=== PATIENT | male | born 1960 | race Caucasian/White ===

== ENCOUNTER 2016-07-04 15:17 | Emergency (ER) | payer OTHER ==
[2016-07-04 15:23] VITALS: BMI 28.4
--- NOTE | 2016-07-04 15:24 | PDOC ---
Rapid Medical Evaluation Chief Complaint: Asthma Time Seen by Provider: 07/04/16 15:21 Medical Evaluation: Allergies Allergy/AdvReac Type Severity Reaction Status Date / Time ciprofloxacin [From Cipro] Allergy Mild Rash Verified 07/04/16 15:19 ciprofloxacin HCl Allergy Mild Rash Verified 07/04/16 15:19 [From Cipro] 07/04/16 15:22 I have performed a brief in-person evaluation of this patient. The patient presents with a chief complaint of: wheeze, cough, sob x 3 days. Hx asthma. no inprovement w/inhaler. No hx of intubations Pertinent physical exam findings: expiratory wheeze, decreased bs at bases, + accessory muscle usage I have ordered the following: duoneb given in triage, duoneb x 3 addit, soulemedrol, iv insert, cxr, cbc, comp The patient will proceed to the ED for further evaluation.
[2016-07-04] MEDS ORDERED: methylPREDNISolone NA SUCC 125 MG/2 ML VIAL IVPB ONE (15:25)
[2016-07-04] MEDS: ALBUTEROL SO4 2.5/IPRATROPIUM 0.5 INH SOL 3 ML VIAL.NEB. NEB SCH ×3 (15:25→16:16)
[2016-07-04] MEDS ORDERED: methylPREDNISolone NA SUCC 125 MG/2 ML VIAL ONE (15:28)
--- NOTE | 2016-07-04 15:28 | PDOC ---
History of Present Illness - History of Present Illness Initial Comments: 07/04/16 15:49 Patient is a 55 year old male with significant medical hx of asthma (treats with albuterol and singulair) who is presenting to the ED with one day of worsening dyspnea. Patient reports using his albuterol and singulair this morning, however, he still felt increasingly dyspneic. The patient also complains of several days of cough but denies any sputum production, fevers, chills, rigors, and chest pain. The patient has not seen his PMD in two years, however, he states that he receives prescription renewals over the phone. The patient hasnt had any steriod treatment for his asthma in three years time. PMD: Dominique Metcalf MD <Mary Jane Justice - Last Filed: 07/04/16 16:17> <Christopher Herbert - Last Filed: 07/04/16 16:56> - General Chief Complaint: Asthma Stated Complaint: ASTHMA ATTACK Time Seen by Provider: 07/04/16 15:21 Past History <Mary Jane Justice - Last Filed: 07/04/16 16:17> - Past Medical History Asthma: Yes Suicide Attempt (Hx): No - Immunization History Immunization Up to Date: Yes - Psycho/Social/Smoking Cessation Hx Anxiety: No Suicidal Ideation: No Smoking Status: No Smoking History: Never smoked Have you smoked in the past 12 months: No Number of Cigarettes Smoked Daily: 0 Information on smoking cessation initiated: No Hx Alcohol Use: No Drug/Substance Use Hx: No Substance Use Type: None Hx Substance Use Treatment: No <Christopher Herbert - Last Filed: 07/04/16 16:56> - Past Medical History Allergies/Adverse Reactions: Allergies Allergy/AdvReac Type Severity Reaction Status Date / Time ciprofloxacin [From Cipro] Allergy Mild Rash Verified 07/04/16 15:19 ciprofloxacin HCl Allergy Mild Rash Verified 07/04/16 15:19 [From Cipro] Home Medications: Ambulatory Orders Montelukast Na [Singulair -] 5 mg PO HS #0 tab.chew 05/04/13 Albuterol 2.5/Ipratropium 0.5 [Duoneb -] 1 neb IH QID PRN 06/08/14 Budesonide [Pulmicort Flexhaler] 90 mcg IH DAILY 06/29/14 Mometasone/Formoterol [Dulera 100 Mcg/5 Mcg Inhaler] 2 inh IH PRN PRN 06/29/14 Review of Systems - Review of Systems Comments:: 07/04/16 15:52 GENERAL/CONSTITUTIONAL: No fever or chills. No weakness. HEAD, EYES, EARS, NOSE AND THROAT: No change in vision. No ear pain or discharge. No sore throat. CARDIOVASCULAR: No chest pain. RESPIRATORY: Cough, dyspnea. No wheezing or hemoptysis. GASTROINTESTINAL: No nausea, vomiting, diarrhea or constipation. GENITOURINARY: No dysuria, frequency, or change in urination. MUSCULOSKELETAL: No joint or muscle swelling or pain. No neck or back pain. SKIN: No rash NEUROLOGIC: No headache, vertigo, loss of consciousness, or change in strength/ sensation. <Mary Jane Justice - Last Filed: 07/04/16 16:17> *Physical Exam - Vital Signs Last Vital Signs Temp Pulse Resp BP Pulse Ox 118 H 34 H 140/100 97 07/04/16 15:20 07/04/16 15:20 07/04/16 15:20 07/04/16 15:20 - Physical Exam Comments: 07/04/16 15:53 GENERAL: Awake, alert, and fully oriented, in no acute distress HEAD: No signs of trauma EYES: PERRLA, EOMI, sclera anicteric, conjunctiva clear ENT: Auricles normal inspection, hearing grossly normal, nares patent, oropharynx clear without exudates. Moist mucosa NECK: Normal ROM, supple, no lymphadenopathy, JVD, or masses LUNGS: Expiratory wheezes in all lung fraser. No conversational dyspnea. No crackles HEART: Regular rate and rhythm, normal S1 and S2, no murmurs, rubs or gallops ABDOMEN: Soft, nontender, normoactive bowel sounds. No guarding, no rebound. No masses EXTREMITIES: Normal range of motion, no edema. No clubbing or cyanosis. No cords, erythema, or tenderness NEUROLOGICAL: Cranial nerves II through XII grossly intact. Normal speech, normal gait SKIN: Warm, Dry, normal turgor, no rashes or lesions noted. ENDOCRINE: No increased thirst. No abnormal weight change. HEMATOLOGIC/LYMPHATIC: No anemia, easy bleeding, or history of blood clots. ALLERGIC/IMMUNOLOGIC: No hives or skin allergy. <Mary Jane Justice - Last Filed: 07/04/16 16:17> - Vital Signs Last Vital Signs Temp Pulse Resp BP Pulse Ox 118 H 34 H 140/100 97 07/04/16 15:20 07/04/16 15:20 07/04/16 15:20 07/04/16 15:20 <Christopher Herbert - Last Filed: 07/04/16 16:56> ED Treatment Course - LABORATORY CBC & Chemistry Diagram: 07/04/16 15:50 07/04/16 15:40 - RADIOLOGY Radiograph Interpretation: 07/04/16 16:17 Chest X-Ray Impression: Minimal atelectatic changes in the right lung base, medially without evidence of focal infiltrates. Reported By: Chapo Muñiz MD - Medications Given in the ED: ED Medications Discontinued Medications Generic Name Dose Route Start Last Admin Trade Name Freq PRN Reason Stop Dose Admin Magnesium Sulfate 2 gm 07/04/16 15:48 07/04/16 15:49 Magnesium Sulfate IVPB 07/04/16 15:49 2 gm NOW ONE Administration Methylprednisolone Sodium Succinate 125 mg 07/04/16 15:25 07/04/16 15:31 Solu-Medrol - IVPB 07/04/16 15:26 125 mg ONCE ONE Administration <Mary Jane Justice - Last Filed: 07/04/16 16:17> - LABORATORY CBC & Chemistry Diagram: 07/04/16 15:50 07/04/16 15:40 <Christopher Herbert - Last Filed: 07/04/16 16:56> Medical Decision Making - Medical Decision Making 07/04/16 16:53 Patient is feeling much better. Repeat exam reveals no wheezing. Diagnostics appreciated. Pt will be discharged with a medrol dose pack and a Z-Pack. He is invited back to us if any problems and ask to follow with his PCP. Especially since he has not seen them in a couple of years. <Christopher Herbert - Last Filed: 07/04/16 16:56> *DC/Admit/Observation/Transfer - Attestations Scribe Attestion: 07/04/16 15:54 Documentation prepared by Mary Jane Justice, acting as medical payment poster for Christopher Herbert MD. <Mary Jane Justice - Last Filed: 07/04/16 16:17> - Discharge Dispostion Admit: No - Attestations Physician Attestion: 07/04/16 15:28 I, Dr. Christopher Herbert, attest that this document has been prepared under my direction and personally reviewed by me in its entirety. I further attest, that it accurately reflects all work, treatment, procedures and medical decision -making performed by me. <Christopher Herbert - Last Filed: 07/04/16 16:56> Diagnosis at time of Disposition: Asthma, Bronchitis Asthma exacerbation Qualifiers: Asthma severity: unspecified severity Qualified Code(s): J45.901 - Unspecified asthma with (acute) exacerbation - Discharge Dispostion Disposition: HOME Condition at time of disposition: Good - Patient Instructions Printed Discharge Instructions: Asthma -- Adult, DI for Chronic Bronchitis Additional Instructions: Mr Batista- I hope you are feeling better. I think it is important that you follow up with your Primary Doctor. Return to us if worse or any new symptoms occur. Both the Medrol Dose Pack and the Zpack are for the next five days. You can start them both tomorrow morning. Best- Dr. Christopher Herbert
[2016-07-04] MEDS ORDERED: MAGNESIUM SULF 50% (8.12 MEQ/2 ML-1 GM VIAL) ONE (15:30)
[2016-07-04] MEDS ORDERED: ALBUTEROL SO4 2.5/IPRATROPIUM 0.5 INH SOL 3 ML VIAL.NEB. NEB ONE (15:42)
[2016-07-04] MEDS ORDERED: MAGNESIUM SULF 50% (8.12 MEQ/2 ML-1 GM VIAL) IVPB ONE (15:48)
[2016-07-04 16:24] LABS: ALBUMIN 4.1 g/dl (3.4-5.0); ANION GAP 9 (8-16); BILIRUBIN,TOTAL 0.6 mg/dL (0.2-1.0); CALCIUM 9.4 mg/dL (8.5-10.1); CO2 28 mmol/L (21-32); CREATININE 1.1 mg/dL (0.7-1.3); GLUCOSE,RANDOM 117 mg/dL (74-106); SGOT/AST 32 U/L (15-37); SGPT/ALT 42 U/L (12-78); TOT PROT 7.4 g/dl (6.4-8.2)
[2016-07-04 16:25] LABS: ALK PHOS 74 U/L (45-117)
[2016-07-04 16:40] LABS: BASOPHIL 0.7 % (0-2.0); EOSINOPHIL 5.7 % (0-4.5); MCH 29.7 pg (25.7-33.7); MCHC 33.9 g/dl (32.0-35.9); MEAN CELL VOLUME 87.8 fl (80-96); MEAN PLT VOLUME 8.6 fl (7.5-11.1); NEUTROPHILS 61.4 % (42.8-82.8); PLATELET COUNT 320 K/MM3 (134-434); RDW 13.1 % (11.9-15.9); WHITE BLOOD COUNT 9.2 K/mm3 (4.0-10.0)
[2016-07-04 17:20] VITALS: BP 129/81; PULSE 86
== END 2016-07-04 17:20 | disposition home or self-care (01) ==
LOC: JER 15:17
PROC: 3E0F7GC Introduction of Other Therapeutic Substance into Respiratory Tract, Via Natural or Artificial Opening (ICD-10-PCS; principal; 2016-07-04)
PROC: 3E0333Z Introduction of Anti-inflammatory into Peripheral Vein, Percutaneous Approach (ICD-10-PCS; 2016-07-04)
PROC: 3E033GC Introduction of Other Therapeutic Substance into Peripheral Vein, Percutaneous Approach (ICD-10-PCS; 2016-07-04)
DX: J45.901 Unspecified asthma with (acute) exacerbation (principal)
CPT/HCPCS: 36415; 71010-TC; 80053; 85025; 99283-25

== ENCOUNTER 2017-01-04 22:09 | Emergency (ER) | payer OTHER ==
[2017-01-04 22:16] VITALS: BP 143/86; PULSE 80; TEMP 98.2; BMI 28.8
--- NOTE | 2017-01-04 22:42 | PDOC ---
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 Patient reports that he was on the fifth floor and pushing his car onto the elevator when it became stuck causing him to fall hitting his right elbow on the floor this evening. Patient reports tenderness of the right elbow which is currently an 8 aching. Patient talk acetaminophen prior to coming to the emergency room. He denies any other injury.He denies any head injury. Able to move his right elbow right shoulder and right wrist without any difficulty. Patient denies any numbness of the right arm. Occurred: reports: just prior to arrival Severity: reports: moderate (left elbow ) Pain Location: reports: upper extremity (left elbow) Method of Injury: Yes: fall (unto the floor here at work ) Modifying Factors: improves with: None Loss of Consciousness: no loss of consciousness Associated Symptoms (Fall): denies symptoms Past History - Past Medical History Allergies/Adverse Reactions: Allergies Allergy/AdvReac Type Severity Reaction Status Date / Time ciprofloxacin [From Cipro] Allergy Mild Rash Verified 01/04/17 22:13 ciprofloxacin HCl Allergy Mild Rash Verified 01/04/17 22:13 [From Cipro] Home Medications: Ambulatory Orders Montelukast Na [Singulair -] 5 mg PO HS #0 tab.chew 05/04/13 Albuterol 2.5/Ipratropium 0.5 [Duoneb -] 1 neb IH QID PRN 06/08/14 Budesonide [Pulmicort Flexhaler] 90 mcg IH DAILY 06/29/14 Mometasone/Formoterol [Dulera 100 Mcg/5 Mcg Inhaler] 2 inh IH PRN PRN 06/29/14 Albuterol Sulfate Inhaler - [Ventolin HFA Inhaler -] 1 - 2 inh PO Q4H #2 inhaler 07/04/16 Asthma: Yes Suicide Attempt (Hx): No - Immunization History Immunization Up to Date: Yes - Psycho/Social/Smoking Cessation Hx Anxiety: No Suicidal Ideation: No Smoking Status: No Smoking History: Never smoked Have you smoked in the past 12 months: No Number of Cigarettes Smoked Daily: 0 Information on smoking cessation initiated: No Hx Alcohol Use: No Drug/Substance Use Hx: No Substance Use Type: None Hx Substance Use Treatment: No Review of Systems - Review of Systems Able to Perform ROS?: Yes Constitutional: No: Symptoms Reported HEENTM: No: Symptoms Reported Respiratory: No: Symptoms reported Cardiac (ROS): No: Symptoms Reported ABD/GI: No: Symptoms Reported : No: Symptoms Reported Musculoskeletal: Yes: Joint Pain (right elbow ). No: Joint Swelling Integumentary: No: Symptoms Reported Neurological: No: Symptoms reported *Physical Exam - Vital Signs Last Vital Signs Temp Pulse Resp BP Pulse Ox 98.2 F 80 18 143/86 100 01/04/17 22:14 01/04/17 22:14 01/04/17 22:14 01/04/17 22:14 01/04/17 22:14 - Physical Exam General Appearance: Yes: Appropriately Dressed Comments:: 01/04/17 22:35 radial pulse 4 + right Extremity: positive: Normal Capillary Refill, Normal Range of Motion (right elbow, shoulder, wrist), Tender (right elbow point tenderness ), Erythema ( minimal erythema rt. elbow ). 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 Patient reports that he was on the fifth floor and pushing his car onto the elevator when it became stuck causing him to fall hitting his right elbow on the floor this evening. Patient reports tenderness of the right elbow which is currently an 8 aching. Patient talk acetaminophen prior to coming to the emergency room. He denies any other injury.He denies any head injury. Able to move his right elbow right shoulder and right wrist without any difficulty. Patient denies any numbness of the right arm. Fall unto rt. elbow r/o Fracture PLAN: xray right elbow avulsion fracture of the medial epicondyle, no fracture noted per Dr. Joel posterior orthoglass splint applied and sling follow up with orthopedist tomorrow for further evaluation 01/04/17 23:10 01/06/17 00:26 *DC/Admit/Observation/Transfer Diagnosis at time of Disposition: Fracture of medial epicondyle of right humerus Qualifiers: Encounter type: initial encounter Fracture type: closed Fracture morphology: unspecified fracture morphology Fracture alignment: displaced Qualified Code(s) : S42.441A - Displaced fracture (avulsion) of medial epicondyle of right humerus , initial encounter for closed fracture - Discharge Dispostion Disposition: HOME Condition at time of disposition: Good - Referrals Referrals: Dominique Edmonds MD [Primary Care Provider] - Justin Shaikh MD [Staff Physician] - - Patient Instructions Additional Instructions: Plan ice to right elbow every hour for 10 minutes while awake tonight and tomorrow Keep Ortho-Glass splint on and use sling may take off at night and elevate on pillow Take ibuprofen or acetaminophen as needed as directed by lathe spotter for pain Follow-up with orthopedist tomorrow morning Return to emergency room if any numbness of arms or worsening pain Patient voiced understanding of discharge instructions and all questions were answered - Post Discharge Activity Work/School Note: Back to Work
== END 2017-01-04 23:14 | disposition home or self-care (01) ==
LOC: JERFT 22:09
PROC: 2W38X1Z Immobilization of Right Upper Extremity using Splint (ICD-10-PCS; principal; 2017-01-04)
DX: S42.441A Displaced fracture (avulsion) of medial epicondyle of right humerus, initial encounter for closed fracture (principal); W18.39XA Other fall on same level, initial encounter; Y93.89 Activity, other specified; Y92.238 Other place in hospital as the place of occurrence of the external cause; Y99.0 Civilian activity done for income or pay
CPT/HCPCS: 73070-TC-RT; 99281-25

== ENCOUNTER 2017-04-30 15:44 | Emergency (ER) | payer OTHER ==
[2017-04-30] MEDS ORDERED: ALBUTEROL SO4 2.5/IPRATROPIUM 0.5 INH SOL 3 ML VIAL.NEB. NEB ONE ×4 (15:48→16:08)
[2017-04-30] MEDS ORDERED: methylPREDNISolone NA SUCC 125 MG/2 ML VIAL ONE (15:49)
[2017-04-30] MEDS ORDERED: methylPREDNISolone NA SUCC 125 MG/2 ML VIAL IVPUSH ONE (15:49)
--- NOTE | 2017-04-30 15:49 | PDOC ---
Attending Attestation - Resident Resident Name: JustinorokcHarry - ED Attending Attestation I have performed the following: I have examined & evaluated the patient, The case was reviewed & discussed with the resident, I agree w/resident's findings & plan, Exceptions are as noted - HPI HPI: 04/30/17 15:55 55 year old male PMH asthma (no intubations, last steroids 9 months ago, on albuterol and singulair) presents with 4 days of progressive SOB. Patient reports using his albuterol and singulair with minimal relief. Reports that this feels like his asthma PMD: Dominique Metcalf MD - Physicial Exam PE: 04/30/17 15:56 GENERAL: Awake, alert, and fully oriented, in mild resp distress HEAD: No signs of trauma EYES: PERRLA, EOMI, sclera anicteric, conjunctiva clear ENT: Auricles normal inspection, hearing grossly normal, nares patent, oropharynx clear without exudates. Moist mucosa NECK: Normal ROM, supple, no lymphadenopathy, JVD, or masses LUNGS: moderate air movement, diffuse wheezing, tachypneic to 30, sat 99% RA HEART: Regular rate and rhythm, normal S1 and S2, no murmurs, rubs or gallops ABDOMEN: Soft, nontender, normoactive bowel sounds. No guarding, no rebound. No masses EXTREMITIES: Normal range of motion, no edema. No clubbing or cyanosis. No cords, erythema, or tenderness NEUROLOGICAL: Normal speech, cranial nerves intact, negative pronator drift SKIN: Warm, Dry, normal turgor, no rashes or lesions noted. - Medical Decision Making 04/30/17 16:05 56yo M hx asthma p/w sob and asthma sxs for 4 days. Vitals remarkable for tachypnea to 30, but sat is high 90s to 100% on RA. Exam with fair air movement but diffuse wheezing and mild distress. Will treat with steroids and nebs and reassess shortly. Will also obtain labs and CXR. 04/30/17 16:31 On reevaluation, the patient reports that he feels much better. Lungs are clear with only minimal wheezing in the left lower lobe. Respiratory rate is 20, O2 sat 100% RA. 04/30/17 18:05 VBG with elevated CO2 to 66 but normal pH, pt likely chronic retainer. AST and BUN very mildly elevated, advised pt to follow up with Dr. Kwok to have them repeated. Initial portable CXR with possible infiltrate vs atelectasis. Rpt pa/lat with persistent possible infiltrate, will tx for CAP nickolas barrios (last admission 3+ months ago at [place]). Pt is afebrile, with minimal non-prod cough, however will treat given new radiographic findings and SOB. Rpt exam with clear lungs, 100% O2 sat, RR 16. Pt feels much better, requests DC, knows to return here or go to [facility] (closer to his home) if symptoms return. I discussed the physical exam findings, ancillary test results and final diagnoses with the patient. I answered all of the patient's questions. The patient was satisfied with the care received and felt comfortable with the discharge plan and treatment plan. The patient will call their primary care physician within 24 hours to arrange follow-up and will return to the Emergency Department with any new, persistent or worsening symptoms. Discharge Disposition - Diagnosis Asthma exacerbation - Discharge Dispostion Disposition: HOME Condition at time of disposition: Stable Last Admission D/C Date: 05/04/13 Admit: No - Prescriptions Prescriptions: Azithromycin 250 mg PO DAILY #4 tablet Prednisone [Prednisone 50 MG TABLETS] 50 mg PO DAILY #4 tablet - Referrals Referrals: Abraham Kwok MD [Primary Care Provider] - - Patient Instructions Printed Discharge Instructions: Pneumonia-Adult, DI for Asthma -- Adult Additional Instructions: Follow-up with Dr. Kwok tomorrow as discussed. Your liver/kidney function tests were very slightly elevated, have Dr. Kwok repeat them when you follow up. Starting tomorrow, take the prednisone and azithromycin as prescribed. Use your albuterol inhaler as needed for shortness of breath. Return to the emergency department if you have any new, worsening or concerning symptoms. Print Language: HUNGARIAN - Post Discharge Activity Work/School Note: Back to Work
[2017-04-30 15:52] VITALS: BMI 30.1
[2017-04-30 16:05] LABS: BASO % 0.9 % (0-2.0); EOS % 6.1 % (0-4.5); HEMATOCRIT 43.6 % (35.4-49); HEMOGLOBIN 14.7 GM/dL (11.7-16.9); LYMPH % 21.8 % (8-40); MCH 29.3 pg (25.7-33.7); MCHC 33.8 g/dl (32.0-35.9); MEAN CELL VOLUME 86.7 fl (80-96); MEAN PLT VOLUME 8.2 fl (7.5-11.1); MONO % 7.6 % (3.8-10.2); NEUT % 63.6 % (42.8-82.8); PLATELET COUNT 319 K/MM3 (134-434); RBC 5.03 M/mm3 (4.00-5.60); RDW 14.2 % (11.9-15.9); WHITE BLOOD COUNT 9.2 K/mm3 (4.0-10.0)
--- NOTE | 2017-04-30 16:08 | PDOC ---
History of Present Illness - General Chief Complaint: Shortness of Breath Stated Complaint: SOB Time Seen by Provider: 04/30/17 15:48 History Source: Patient Exam Limitations: Clinical Condition - History of Present Illness Initial Comments: 04/30/17 16:05 The patient is a 56M with a PMH of asthma (controlled with albuterol and singulair) who presents to the ED with difficulty breathing 2/2 to asthma exacerbation. The patient states that he was "not feeling well" for 4 days, complaining of a cough. He states that his asthma acutely worsened overnight. He tried 4 neb treatments at home, came to work and tried 4 albuterol inhaler treatments, but his asthma persisted. He denies any sore throat, fever, chills, nausea, vomiting, CP, and worsening SOB. His last asthma attack was 3-4 months ago. He has never been intubated and never been in the ICU. Past History - Past Medical History Allergies/Adverse Reactions: Allergies Allergy/AdvReac Type Severity Reaction Status Date / Time ciprofloxacin [From Cipro] Allergy Mild Rash Verified 04/30/17 15:52 ciprofloxacin HCl Allergy Mild Rash Verified 04/30/17 15:52 [From Cipro] Home Medications: Ambulatory Orders Albuterol 2.5/Ipratropium 0.5 [Duoneb -] 1 neb IH QID PRN 06/08/14 Albuterol Sulfate Inhaler - [Ventolin HFA Inhaler -] 1 - 2 inh PO Q4H #2 inhaler 07/04/16 Montelukast Na [Singulair -] 10 mg PO HS 04/30/17 Salmeterol/Fluticasone [Advair 100Mcg/50Mcg -] 1 inh PO BID 04/30/17 Asthma: Yes COPD: No - Immunization History Immunization Up to Date: Yes - Suicide/Smoking/Psychosocial Hx Smoking Status: No Smoking History: Never smoked Have you smoked in the past 12 months: No Number of Cigarettes Smoked Daily: 0 Hx Alcohol Use: No Drug/Substance Use Hx: No Substance Use Type: None Hx Substance Use Treatment: No Review of Systems - Review of Systems Able to Perform ROS?: Yes Comments:: 04/30/17 16:27 GENERAL/CONSTITUTIONAL: No fever or chills. No weakness. HEAD, EYES, EARS, NOSE AND THROAT: No change in vision. No ear pain or discharge. No sore throat. GASTROINTESTINAL: No nausea, vomiting, diarrhea, constipation, or abdominal pain. GENITOURINARY: No dysuria, frequency, hematuria, or change in urination. CARDIOVASCULAR: No chest pain, palpitations, or lightheadedness. RESPIRATORY: Positive for cough, wheezing, and shortness of breath. No hemoptysis. MUSCULOSKELETAL: No joint or muscle swelling or pain. No neck or back pain. SKIN: No rash or lesions. NEUROLOGIC: No headache, numbness, tingling, weakness, loss of consciousness, or change in strength/sensation. ENDOCRINE: No increased thirst. No abnormal weight change. HEMATOLOGIC/LYMPHATIC: No anemia, easy bleeding, or history of blood clots. ALLERGIC/IMMUNOLOGIC: No hives or skin allergy. Is the patient limited Citizen Of [place] proficient: No *Physical Exam - Vital Signs Last Vital Signs Temp Pulse Resp BP Pulse Ox 100 H 32 H 160/120 100 04/30/17 15:50 04/30/17 15:50 04/30/17 15:50 04/30/17 15:50 - Physical Exam Comments: 04/30/17 16:29 GENERAL: Well developed, well nourished. Awake and alert. In moderate distress. Tripoding, speaking in 1 word sentence. HEENT: Normocephalic, atraumatic. Hearing grossly normal. Moist mucous membranes. NECK: Supple. Full ROM. No JVD. No thyromegaly. No lymphadenopathy. CARDIOVASCULAR: Regular rate and rhythm. No murmurs, rubs, or gallops. PULMONARY: Moderate respiratory distress. Expiratory wheezes in b/l lung fraser. Not moving air well. ABDOMINAL: Soft. Non-tender. Non-distended. No rebound or guarding. GENITOURINARY: No CVA tenderness bilaterally. MUSCULOSKELETAL: Normal range of motion at all joints. No bony deformities or tenderness. EXTREMITIES: No cyanosis. No clubbing. No edema. No calf tenderness. SKIN: Warm and dry. Normal capillary refill. No rashes. No jaundice. NEUROLOGICAL: Alert, awake, appropriate. Cranial nerves 2-12 intact. Normal speech. Gait is normal without ataxia. PSYCHIATRIC: Cooperative. Good eye contact. Appropriate mood and affect. 04/30/17 16:30 ED Treatment Course - LABORATORY CBC & Chemistry Diagram: 04/30/17 16:00 04/30/17 16:00 - RADIOLOGY Radiology Studies Ordered: Category Date Time Status CHEST X-RAY PORTABLE* [RAD] Stat Radiology 04/30/17 15:48 Ordered Medical Decision Making - Medical Decision Making 04/30/17 16:39 The patient is a 56M with a PMH of asthma who presented in respiratory distress. I ordered continuous duonebs and 125 of solumedrol. On reassessment the patient is speaking in full sentences and has decreased wheezing. Pending labs and imaging. 04/30/17 16:58 Care will be continued by Dr. Villegas.
[2017-04-30 16:15] LABS: VENOUS PC02 38.1 mmHg (38-52); VENOUS PH 7.39 (7.32-7.42); VENOUS PO2 66.3 mmHg (28-48)
[2017-04-30 16:37] LABS: ANION GAP 10 (8-16); BILIRUBIN,TOTAL 0.8 mg/dL (0.2-1.0); BLOOD UREA NITROGEN 24 mg/dL (7-18); CALCIUM 8.9 mg/dL (8.5-10.1); CHLORIDE 104 mmol/L (98-107); CO2 23 mmol/L (21-32); CREATININE 1.1 mg/dL (0.7-1.3); GLUCOSE,RANDOM 128 mg/dL (74-106); SGPT/ALT 49 U/L (12-78); SODIUM 137 mmol/L (136-145); TOT PROT 7.5 g/dl (6.4-8.2)
[2017-04-30 16:40] LABS: ALK PHOS 65 U/L (45-117)
[2017-04-30 16:45] LABS: POTASSIUM 4.3 mmol/L (3.5-5.1); SGOT/AST 46 U/L (15-37)
[2017-04-30] MEDS ORDERED: AZITHROMYCIN 250 MG TABLET PO ONE (17:59)
[2017-04-30] MEDS ORDERED: AZITHROMYCIN 500 MG TABLET ONE (18:27)
[2017-04-30 18:41] VITALS: BP 128/83; PULSE 94; TEMP 98
--- NOTE | 2017-05-01 10:28 | EKG ---
Test Reason : Blood Pressure : / mmHG Vent. Rate : 100 BPM Atrial Rate : 100 BPM P-R Int : 174 ms QRS Dur : 092 ms QT Int : 346 ms P-R-T Axes : 032 124 010 degrees QTc Int : 446 ms NORMAL SINUS RHYTHM LEFT POSTERIOR FASCICULAR BLOCK INFERIOR INFARCT , AGE UNDETERMINED ABNORMAL ECG Confirmed by CHUYITA RUELAS MD ([id number]) on 05/01/2017 10:28:02 AM Referred By: Confirmed By:CHUYITA RUELAS MD
== END 2017-04-30 18:41 | disposition home or self-care (01) ==
LOC: JER 15:44
PROC: 3E0F7GC Introduction of Other Therapeutic Substance into Respiratory Tract, Via Natural or Artificial Opening (ICD-10-PCS; principal; 2017-04-30)
PROC: 3E0F7GC Introduction of Other Therapeutic Substance into Respiratory Tract, Via Natural or Artificial Opening (ICD-10-PCS; 2017-04-30)
PROC: 3E0333Z Introduction of Anti-inflammatory into Peripheral Vein, Percutaneous Approach (ICD-10-PCS; 2017-04-30)
DX: J45.901 Unspecified asthma with (acute) exacerbation (principal)
CPT/HCPCS: 36415; 71045-TC; 71046-TC; 80053; 82550; 82553; 82803; 84484; 85025; 93005; 93010; 99283-25

== ENCOUNTER 2017-07-07 15:23 | Emergency (ER) | payer OTHER ==
[2017-07-07] MEDS ORDERED: MAGNESIUM SULF 50% (8.12 MEQ/2 ML-1 GM VIAL) IVPB ONE (15:25)
[2017-07-07] MEDS ORDERED: ALBUTEROL SO4 2.5/IPRATROPIUM 0.5 INH SOL 3 ML VIAL.NEB. NEB ONE ×2 (15:25→15:30)
--- NOTE | 2017-07-07 15:25 | PDOC ---
Rapid Medical Evaluation Time Seen by Provider: 07/07/17 15:24 Medical Evaluation: Allergies Allergy/AdvReac Type Severity Reaction Status Date / Time ciprofloxacin [From Cipro] Allergy Mild Rash Verified 04/30/17 15:52 ciprofloxacin HCl Allergy Mild Rash Verified 04/30/17 15:52 [From Cipro] 07/07/17 15:24 56 year old male with a history of asthma on daily Advair/Singulair. States he was intubated here earlier this year although this is not immediately apparent from notes. Presents in respiratory distress, diffuse insp + exp wheezing with very poor air entry bilaterally, speaking in half sentences. Taken to Main ED room 10. -DuoNeb -Albuterol neb q15 min -Solumedrol 125mg IVP -Mg 2g IVPB -Bipap
[2017-07-07] MEDS ORDERED: methylPREDNISolone NA SUCC 125 MG/2 ML VIAL IVPUSH ONE (15:28)
[2017-07-07] MEDS ORDERED: MAGNESIUM SULF 50% (8.12 MEQ/2 ML-1 GM VIAL) ONE (15:29)
[2017-07-07] MEDS ORDERED: EPINEPHrine/PF 1 MG/1 ML (1:1,000) AMPULE ONE (15:29)
[2017-07-07] MEDS ORDERED: methylPREDNISolone NA SUCC 125 MG/2 ML VIAL ONE (15:30)
[2017-07-07] MEDS: ALBUTEROL SO4 0.083% IH SOL 2.5 MG/3 ML VIAL.NEB. NEB SCH ×4 (15:35→16:43)
[2017-07-07 15:38] VITALS: BMI 31.3
--- NOTE | 2017-07-07 16:03 | PDOC ---
Attending Attestation - HPI HPI: 07/07/17 16:18 The patient is a 56-year-old male with a significant past medical history of asthma (compliant with daily asthma medications), who presents to the emergency department for respiratory distress today. He reports dyspnea and wheezing. Patient states he was previously intubated earlier this year. The patient denies chest pain, headache and dizziness. The patient denies fever , chills, nausea, vomit, diarrhea and constipation. The patient denies dysuria, frequency, urgency and hematuria. - Physicial Exam PE: 07/07/17 16:18 Vitals: Triage Vital signs reviewed General Appearance: well nourished well developed, Head: Atraumatic, normocephalic Throat: Posterior oropharynx without erythema, mucous membranes moist, Cardiac: Regular rate and rhythm, no murmurs, no rubs, no gallops, Lungs: (+) Mild bilateral wheezing Abdomen: Soft, nondistended, normal bowel sounds, nontender to palpation Extremities: Full range of motion to all extremities, no cyanosis, clubbing, or edema Skin: Warm and dry, no rashes or lesions, no petechiae Psych: normal mood, normal affect <Heather Short - Last Filed: 07/07/17 16:18> - Resident Resident Name: Mariah Carlos - ED Attending Attestation I have performed the following: I have examined & evaluated the patient, The case was reviewed & discussed with the resident, I agree w/resident's findings & plan, Exceptions are as noted - Medical Decision Making 07/07/17 18:36 56 years old with moderate asthma exacerbation given DuoNeb's site Medrol magnesium We'll observe and reassess Reevaluation 4 PM patient feels much better we'll observe for an additional 2 hours and reevaluate Reevaluation 6 PM patient states his asthma exacerbations completely resolved. No wheezing at this time normal vital signs. We'll discharge home with 5 day course prednisone he'll follow-up with his primary care provider 1-2 days Findings, need for follow-up, strict return instructions discussed patient. <James Mckinley - Last Filed: 07/07/17 18:36>
[2017-07-07 16:09] LABS: BASO % 0.9 % (0-2.0); EOS % 6.8 % (0-4.5); HEMATOCRIT 43.2 % (35.4-49); HEMOGLOBIN 14.7 GM/dL (11.7-16.9); LYMPH % 27.2 % (8-40); MCH 30.1 pg (25.7-33.7); MCHC 34.1 g/dl (32.0-35.9); MEAN CELL VOLUME 88.3 fl (80-96); MEAN PLT VOLUME 8.1 fl (7.5-11.1); MONO % 8.4 % (3.8-10.2); NEUT % 56.7 % (42.8-82.8); PLATELET COUNT 288 K/MM3 (134-434); RBC 4.89 M/mm3 (4.00-5.60); RDW 13.3 % (11.9-15.9); WHITE BLOOD COUNT 7.8 K/mm3 (4.0-10.0)
--- NOTE | 2017-07-07 16:20 | PDOC ---
History of Present Illness - General Chief Complaint: Asthma Stated Complaint: ASTHMA Time Seen by Provider: 07/07/17 15:24 History Source: Patient Exam Limitations: Clinical Condition - History of Present Illness Initial Comments: This is a 56 YOM with h/o asthma (on Advair/Singulair, admitted one month ago for difficulty breathing, no ICU admission or intubations for respiratory distress in the past, last steroid course was a month ago, no specific known triggers) who presents with respiratory distress which he states feels the same as his prior asthma exacerbations. He notes that his SOB started last night at midnight but seemed to improve somewhat with his home albuterol nebulizer. He went to work today and needed to use his albuterol MDI about 8 times with minimal relief. His respiratory distress became worse about an hour before his arrival to the ED. Past History - Past Medical History Allergies/Adverse Reactions: Allergies Allergy/AdvReac Type Severity Reaction Status Date / Time ciprofloxacin [From Cipro] Allergy Mild Rash Verified 07/07/17 15:25 ciprofloxacin HCl Allergy Mild Rash Verified 07/07/17 15:25 [From Cipro] Home Medications: Ambulatory Orders Albuterol 2.5/Ipratropium 0.5 [Duoneb -] 1 neb IH QID PRN 06/08/14 Albuterol Sulfate Inhaler - [Ventolin HFA Inhaler -] 1 - 2 inh PO Q4H #2 inhaler 07/04/16 Montelukast Na [Singulair -] 10 mg PO HS 04/30/17 Prednisone [Deltasone] 40 mg PO DAILY #5 tablet 07/07/17 Asthma: Yes COPD: No - Immunization History Immunization Up to Date: Yes - Suicide/Smoking/Psychosocial Hx Smoking Status: No Smoking History: Never smoked Have you smoked in the past 12 months: No Number of Cigarettes Smoked Daily: 0 Hx Alcohol Use: No Drug/Substance Use Hx: No Substance Use Type: None Hx Substance Use Treatment: No Review of Systems - Review of Systems Able to Perform ROS?: Yes Constitutional: No: Chills, Fever, Unexplained wgt Loss HEENTM: No: Nose Congestion, Throat Pain Respiratory: Yes: Cough, Shortness of Breath, Wheezing. No: Productive cough Cardiac (ROS): No: Chest Pain, Palpitations ABD/GI: No: Constipated, Diarrhea, Nausea, Vomiting : No: Burning, Dysuria Musculoskeletal: No: Back Pain, Neck Pain Integumentary: No: Bruising, Rash Neurological: No: Headache, Numbness, Tingling, Weakness, Dizziness Endocrine: No: Unexplained Weight Gain, Unexplained Weight Loss *Physical Exam - Vital Signs Last Vital Signs Temp Pulse Resp BP Pulse Ox 80 18 128/65 99 07/07/17 16:01 07/07/17 16:01 07/07/17 16:01 07/07/17 16:01 - Physical Exam General Appearance: Yes: Nourished, Appropriately Dressed, Moderate Distress, Other (tripoding initially, on DuoNeb treatment through ventimask) HEENT: positive: EOMI, Normal Voice, Hearing Grossly Normal. negative: Scleral Icterus (R), Scleral Icterus (L), Nasal Congestion Neck: positive: Trachea midline, Supple. negative: Tender, Rigid Respiratory/Chest: positive: Respiratory Distress (moderate), Accessory Muscle Use, Wheezing (upper lungs bilaterally, posterior>anterior), Other (tachypnea). negative: Crackles, Rhonchi, Stridor Cardiovascular: positive: Regular Rhythm, Regular Rate, Other (2/6 systolic ejection murmur heard best at LUSB). negative: Edema Gastrointestinal/Abdominal: positive: Normal Bowel Sounds, Soft. negative: Tender, Organomegaly, Pulsatile Mass, Guarding Musculoskeletal: positive: Normal Inspection. negative: Decreased Range of Motion, Vertebral Tenderness Extremity: positive: Normal Capillary Refill, Normal Inspection, Normal Range of Motion. negative: Tender, Cyanosis Integumentary: positive: Normal Color, Dry, Warm. negative: Erythema, Rash, Bruising Neurologic: positive: insurance broker II-XII NML intact (grossly), Fully Oriented, Alert, Normal Mood/Affect, Normal Response, Motor Strength 5/5 ED Treatment Course - LABORATORY CBC & Chemistry Diagram: 07/07/17 15:25 07/07/17 15:25 - ADDITIONAL ORDERS Additional order review: 07/07/17 15:25 RBC 4.89 MCV 88.3 MCHC 34.1 RDW 13.3 MPV 8.1 Neutrophils % 56.7 Lymphocytes % 27.2 D Monocytes % 8.4 Eosinophils % 6.8 H Basophils % 0.9 - Medications Given in the ED: ED Medications Discontinued Medications Generic Name Dose Route Start Last Admin Trade Name Freq PRN Reason Stop Dose Admin Albuterol Sulfate 1 amp 07/07/17 15:30 07/07/17 16:16 Ventolin 0.083% Nebulizer Soln - NEB 07/07/17 16:16 1 amp Q15M RANI Administration Albuterol/Ipratropium 1 amp 07/07/17 15:25 07/07/17 15:23 Duoneb - NEB 07/07/17 15:26 1 amp ONCE ONE Administration Magnesium Sulfate 2 gm 07/07/17 15:25 07/07/17 15:30 Magnesium Sulfate IVPB 07/07/17 15:26 2 gm ONCE ONE Administration Methylprednisolone Sodium Succinate 125 mg 07/07/17 15:28 07/07/17 15:25 Solu-Medrol - IVPUSH 07/07/17 15:29 125 mg ONCE ONE Administration Medical Decision Making - Medical Decision Making 56 YOM with h/o asthma who p/w respiratory distress x1 hour in the setting of < 1 day SOB and wheezing. Feels the same as his prior asthma attacks which usually resolve with breathing treatments, SoluMedrol, and Magnesium. VS notable for respiratory rate 33, HTN to 153/100, otherwise VS wnl. Patient tripoding initially, audible wheezing upper lobes, 2/6 systolic ejection murmur. Ordered are SoluMedrol, DuoNebs, Magnesium, CBCD, CMP, CXR. 07/07/17 17:45 Lab work unremarkable, CXR with shallow inspiration but otherwise nothing acute. On re-eval the patient is resting/sleeping comfortably. Patient's repeat exam is benign, wheezing has completely resolved, patient wishes to go home. He states that he has all of his normal asthma medications at home including neb treatments and MDI. He does request tomorrow off work to call and possibly follow up with Dr. Jaimes. He also notes that he got significant relief with Prednisone course a month ago when sxs were similar. 5 day course prednisone 40 mg sent to pharmacy. Work note written. Return precautions are discussed. *DC/Admit/Observation/Transfer Diagnosis at time of Disposition: Asthma exacerbation Qualifiers: Asthma severity: unspecified severity Asthma persistence: unspecified Qualified Code(s): J45.901 - Unspecified asthma with (acute) exacerbation - Discharge Dispostion Disposition: HOME Condition at time of disposition: Stable Admit: No - Prescriptions Prescriptions: Prednisone [Deltasone] 40 mg PO DAILY #5 tablet - Referrals Referrals: Abraham Kwok MD [Primary Care Provider] - - Patient Instructions Printed Discharge Instructions: Asthma -- Adult Additional Instructions: You were seen in the ER for an asthma exacerbation. We gave you steroids, magnesium, and breathing treatments which resolved your symptoms while you were here in the department. We did blood work and a chest x-ray which did not show any concerning findings. We are sending a prescription for prednisone to your pharmacy. Please take the whole course, and follow up with Dr. Kwok tomorrow. Please return to the ER for any new or worsening symptoms like worsened wheezing/shortness of breath. - Post Discharge Activity Forms/Work/School Notes: Back to Work
[2017-07-07 16:41] LABS: ALBUMIN 4.1 g/dl (3.4-5.0); ANION GAP 9 (8-16); BLOOD UREA NITROGEN 19 mg/dL (7-18); CALCIUM 8.6 mg/dL (8.5-10.1); CHLORIDE 102 mmol/L (98-107); CO2 28 mmol/L (21-32); CREATININE 1.1 mg/dL (0.7-1.3); GLUCOSE,RANDOM 114 mg/dL (74-106); SGPT/ALT 34 U/L (12-78); SODIUM 139 mmol/L (136-145)
[2017-07-07 16:43] LABS: ALK PHOS 68 U/L (45-117); BILIRUBIN,TOTAL 0.5 mg/dL (0.2-1.0); POTASSIUM 4.2 mmol/L (3.5-5.1); TOT PROT 7.1 g/dl (6.4-8.2)
[2017-07-07 16:44] LABS: SGOT/AST 32 U/L (15-37)
[2017-07-07 17:33] VITALS: BP 119/73; PULSE 93
== END 2017-07-07 18:07 | disposition home or self-care (01) ==
LOC: JER 15:23
PROC: 3E0F7GC Introduction of Other Therapeutic Substance into Respiratory Tract, Via Natural or Artificial Opening (ICD-10-PCS; principal; 2017-07-07)
PROC: 3E0F7GC Introduction of Other Therapeutic Substance into Respiratory Tract, Via Natural or Artificial Opening (ICD-10-PCS; 2017-07-07)
PROC: 3E033GC Introduction of Other Therapeutic Substance into Peripheral Vein, Percutaneous Approach (ICD-10-PCS; 2017-07-07)
PROC: 3E033NZ Introduction of Analgesics, Hypnotics, Sedatives into Peripheral Vein, Percutaneous Approach (ICD-10-PCS; 2017-07-07)
DX: J45.901 Unspecified asthma with (acute) exacerbation (principal)
CPT/HCPCS: 36415; 71045-TC-FY; 80053; 85025; 99282-25; J7620

== ENCOUNTER 2017-09-24 18:15 | Emergency (ER) | payer OTHER ==
[2017-09-24 18:22] VITALS: BP 156/69; PULSE 80; TEMP 98.3; BMI 31.3
[2017-09-24] MEDS ORDERED: ALBUTEROL SO4 2.5/IPRATROPIUM 0.5 INH SOL 3 ML VIAL.NEB. NEB ONE (18:22)
[2017-09-24] MEDS ORDERED: predniSONE 20 MG TABLET (UD) PO ONE (18:27)
--- NOTE | 2017-09-24 18:32 | PDOC ---
History of Present Illness - General History Source: Patient Exam Limitations: No Limitations - History of Present Illness Initial Comments: 09/24/17 18:35 The patient is a 57 year old male, with a significant PMH of asthma (complaint with asthma medications), who presents to the emergency department with worsening shortness of breath and wheezing for one day. The patient states he noted a dry cough and shortness of breath secondary to his asthma symptoms beginning last night. The patient states he used his albuterol inhaler with mild relief. The patient states this morning his asthma symptoms were continuing which prompted him to come to the ED for evaluation. The patient states he takes singulair every morning. The patient states his last Prednisone treatment was 2 months ago. The patient denies chest pain, headache and dizziness. Denies fever, chills, nausea, vomit, diarrhea and constipation. Denies dysuria, frequency, urgency and hematuria. Allergies: ciprofloxacin, ciprofloxacin HCL <Jose Sanchez - Last Filed: 09/24/17 18:39> <Doris Snow - Last Filed: 09/24/17 20:52> - General Chief Complaint: Asthma Stated Complaint: ASTHMA Time Seen by Provider: 09/24/17 18:24 Past History <Jose Sanchez - Last Filed: 09/24/17 18:39> - Past Medical History Asthma: Yes COPD: No - Immunization History Immunization Up to Date: Yes - Suicide/Smoking/Psychosocial Hx Smoking Status: No Smoking History: Never smoked Have you smoked in the past 12 months: No Number of Cigarettes Smoked Daily: 0 Information on smoking cessation initiated: No Hx Alcohol Use: No Drug/Substance Use Hx: No Substance Use Type: None Hx Substance Use Treatment: No <Doris Snow - Last Filed: 09/24/17 20:52> - Past Medical History Allergies/Adverse Reactions: Allergies Allergy/AdvReac Type Severity Reaction Status Date / Time ciprofloxacin [From Cipro] Allergy Mild Rash Verified 09/24/17 18:18 ciprofloxacin HCl Allergy Mild Rash Verified 09/24/17 18:18 [From Cipro] Home Medications: Ambulatory Orders Albuterol 2.5/Ipratropium 0.5 [Duoneb -] 1 neb IH QID PRN 06/08/14 Albuterol Sulfate Inhaler - [Ventolin HFA Inhaler -] 1 - 2 inh PO Q4H #2 inhaler 03/10/17 Montelukast Na [Singulair -] 10 mg PO HS 04/30/17 Prednisone [Deltasone] 40 mg PO DAILY #5 tablet 07/07/17 Review of Systems - Review of Systems Comments:: 09/24/17 18:36 GENERAL/CONSTITUTIONAL: No fever or chills. No weakness. HEAD, EYES, EARS, NOSE AND THROAT: No change in vision. No ear pain or discharge. No sore throat. CARDIOVASCULAR: (+) Shortness of breath. No chest pain. RESPIRATORY: (+) Dry cough. (+) Wheezing. No hemoptysis. GASTROINTESTINAL: No nausea, vomiting, diarrhea or constipation. GENITOURINARY: No dysuria, frequency, or change in urination. MUSCULOSKELETAL: No joint or muscle swelling or pain. No neck or back pain. SKIN: No rash NEUROLOGIC: No headache, vertigo, loss of consciousness, or change in strength/ sensation. ENDOCRINE: No increased thirst. No abnormal weight change. HEMATOLOGIC/LYMPHATIC: No anemia, easy bleeding, or history of blood clots. ALLERGIC/IMMUNOLOGIC: No hives or skin allergy. <Jose Sanchez - Last Filed: 09/24/17 18:39> *Physical Exam - Vital Signs Last Vital Signs Temp Pulse Resp BP Pulse Ox 98.3 F 80 24 156/69 100 09/24/17 18:19 09/24/17 18:19 09/24/17 18:19 09/24/17 18:19 09/24/17 18:19 <Jose Sanchez - Last Filed: 09/24/17 18:39> - Vital Signs Last Vital Signs Temp Pulse Resp BP Pulse Ox 98.3 F 80 24 156/69 100 09/24/17 18:19 09/24/17 18:19 09/24/17 18:19 09/24/17 18:19 09/24/17 18:19 - Physical Exam Comments: GENERAL: Awake, alert, and fully oriented, in no acute distress HEAD: No signs of trauma EYES: PERRLA, EOMI, sclera anicteric, conjunctiva clear ENT: Auricles normal inspection, hearing grossly normal, nares patent, oropharynx clear without exudates. Moist mucosa NECK: Normal ROM, supple, no lymphadenopathy, JVD, or masses LUNGS: Dec air entry B/L, scattered exp wheezes. Speaking full sentences. HEART: Regular rate and rhythm, normal S1 and S2, no murmurs, rubs or gallops ABDOMEN: Soft, nontender, normoactive bowel sounds. No guarding, no rebound. No masses EXTREMITIES: Normal range of motion, no edema. No clubbing or cyanosis. No cords, erythema, or tenderness NEUROLOGICAL: Cranial nerves II through XII grossly intact. Normal speech, normal gait SKIN: Warm, Dry, normal turgor, no rashes or lesions noted. <Doris Snow - Last Filed: 09/24/17 20:52> ED Treatment Course - Medications Given in the ED: ED Medications Discontinued Medications Generic Name Dose Route Start Last Admin Trade Name Freq PRN Reason Stop Dose Admin Albuterol/Ipratropium 1 amp 09/24/17 18:22 09/24/17 18:22 Duoneb - NEB 09/24/17 18:23 1 amp NOW ONE Administration <Jose Sanchez - Last Filed: 09/24/17 18:39> - Medications Given in the ED: ED Medications Discontinued Medications Generic Name Dose Route Start Last Admin Trade Name Freq PRN Reason Stop Dose Admin Albuterol/Ipratropium 1 amp 09/24/17 18:22 09/24/17 18:22 Duoneb - NEB 09/24/17 18:23 1 amp NOW ONE Administration <Doris Snow - Last Filed: 09/24/17 20:52> Medical Decision Making - Medical Decision Making 09/24/17 20:51 Pt improved s/p nebs and steroids. Lungs CTA B/L. XR reviewed, no acute consolidation. Stable for DC home. <Doris Snow - Last Filed: 09/24/17 20:52> *DC/Admit/Observation/Transfer - Attestations Scribe Attestion: 09/24/17 18:36 Documentation prepared by Jose Sanchez, acting as medical device for Doris Snow MD. <Jose Sanchez - Last Filed: 09/24/17 18:39> - Discharge Dispostion Decision to Admit order: No <Doris Snow - Last Filed: 09/24/17 20:52> Diagnosis at time of Disposition: Asthma exacerbation Qualifiers: Asthma severity: unspecified severity Asthma persistence: unspecified Qualified Code(s): J45.901 - Unspecified asthma with (acute) exacerbation - Discharge Dispostion Disposition: HOME Condition at time of disposition: Improved - Referrals Referrals: Abraham Kwok MD [Primary Care Provider] - - Patient Instructions Printed Discharge Instructions: DI for Asthma -- Adult
[2017-09-24] MEDS ORDERED: predniSONE 20 MG TABLET (UD) ONE (18:36)
[2017-09-24] MEDS: ALBUTEROL SO4 2.5/IPRATROPIUM 0.5 INH SOL 3 ML VIAL.NEB. NEB SCH ×3 (18:37→19:15)
== END 2017-09-24 21:08 | disposition home or self-care (01) ==
LOC: JER 18:15
PROC: 3E0F7GC Introduction of Other Therapeutic Substance into Respiratory Tract, Via Natural or Artificial Opening (ICD-10-PCS; principal; 2017-09-24)
PROC: 3E0F7GC Introduction of Other Therapeutic Substance into Respiratory Tract, Via Natural or Artificial Opening (ICD-10-PCS; 2017-09-24)
DX: J45.901 Unspecified asthma with (acute) exacerbation (principal)
CPT/HCPCS: 71045-TC-FY; 99281-25; J7620

== ENCOUNTER 2018-01-25 19:24 | Emergency (ER) | payer OTHER ==
[2018-01-25 19:37] VITALS: BMI 28.1
--- NOTE | 2018-01-25 19:37 | PDOC ---
Rapid Medical Evaluation Time Seen by Provider: 01/25/18 19:33 Medical Evaluation: Allergies Allergy/AdvReac Type Severity Reaction Status Date / Time ciprofloxacin [From Cipro] Allergy Mild Rash Verified 09/24/17 18:18 ciprofloxacin HCl Allergy Mild Rash Verified 09/24/17 18:18 [From Cipro] I have performed a brief in-person evaluation of this patient. The patient presents with a chief complaint of: wheezing, SOB Pertinent physical exam findings: audible wheezing. No breath sounds heard on lung exam I have ordered the following: duoneb x 4 The patient will proceed to the ED for further evaluation Discharge Disposition - Diagnosis Asthma exacerbation - Referrals Referrals: Abraham Kwok MD [Primary Care Provider] - - Patient Instructions - Post Discharge Activity
[2018-01-25] MEDS: ALBUTEROL SO4 2.5/IPRATROPIUM 0.5 INH SOL 3 ML VIAL.NEB. NEB SCH ×4 (19:44→21:11)
[2018-01-25] MEDS ORDERED: ALBUTEROL SO4 2.5/IPRATROPIUM 0.5 INH SOL 3 ML VIAL.NEB. NEB ONE ×2 (19:51→20:26)
--- NOTE | 2018-01-25 19:54 | PDOC ---
History of Present Illness - General Chief Complaint: Asthma Stated Complaint: Asthma Time Seen by Provider: 01/25/18 19:33 - History of Present Illness Initial Comments: 01/25/18 19:50 57 yo M with h/o asthma who p/w SOB. Patient reports acute onset of SOB, Block, and wheezing x 2 days. Patient arrives while at work ( [employer]), after experiencing SOB, x 90 minutes [employer]. Endorses non productive cough, yesterday evening, with absent hemoptysis. Reports daily use of duoneb therapy, with increased use over past 2 days. Denies daily O2 requirements or h/o CHF. Patient denies N/V, F/C, CP, PND, Orthopnea, pain/leg swelling, urinary complaints, hematuria, abdominal pain, diarrhea, constipation, lightheadedness, weakness, sensory changes. PMHx: as noted above. Denies h/o ACS/AL, stent placement, or CABG. ROS: as noted SHx: Denies tobacco, Etoh, IVDA Allergies: NKDA PMD: Dr. Kwok. Past History - Past Medical History Allergies/Adverse Reactions: Allergies Allergy/AdvReac Type Severity Reaction Status Date / Time ciprofloxacin [From Cipro] Allergy Mild Rash Verified 01/25/18 19:37 ciprofloxacin HCl Allergy Mild Rash Verified 01/25/18 19:37 [From Cipro] Home Medications: Ambulatory Orders Montelukast Na [Singulair -] 10 mg PO HS 04/30/17 Albuterol Sulfate Inhaler - [Ventolin Hfa Inhaler -] 1 - 2 inh PO QID #1 inhaler 09/29/17 Prednisone [Deltasone] 40 mg PO ONCE 4 Days #8 tablet MDD 2 tab 01/25/18 Asthma: Yes COPD: No - Immunization History Immunization Up to Date: Yes - Suicide/Smoking/Psychosocial Hx Smoking Status: No Smoking History: Never smoked Have you smoked in the past 12 months: No Number of Cigarettes Smoked Daily: 0 Hx Alcohol Use: No Drug/Substance Use Hx: No Substance Use Type: None Hx Substance Use Treatment: No Review of Systems - Review of Systems Comments:: 01/25/18 19:52 GENERAL/CONSTITUTIONAL: No fever or chills. No weakness. HEAD, EYES, EARS, NOSE AND THROAT: No change in vision. No ear pain or discharge. No sore throat. CARDIOVASCULAR: No chest pain. RESPIRATORY: + cough, wheezing, SOB.No hemoptysis. GASTROINTESTINAL: No nausea, vomiting, diarrhea or constipation. GENITOURINARY: No dysuria, frequency, or change in urination. MUSCULOSKELETAL: No joint or muscle swelling or pain. No neck or back pain. SKIN: No rash NEUROLOGIC: No headache, vertigo, loss of consciousness, or change in strength/ sensation. ENDOCRINE: No increased thirst. No abnormal weight change HEMATOLOGIC/LYMPHATIC: No anemia, easy bleeding, or history of blood clots. ALLERGIC/IMMUNOLOGIC: No hives or skin allergy. *Physical Exam - Vital Signs Last Vital Signs Temp Pulse Resp BP Pulse Ox 79 20 146/98 98 01/25/18 19:33 01/25/18 19:33 01/25/18 19:33 01/25/18 19:33 - Physical Exam Comments: 01/25/18 19:52 GENERAL: Awake, alert, and fully oriented, in no acute distress HEAD: No signs of trauma, normocephalic, atraumatic EYES: PERRLA, EOMI, sclera anicteric, conjunctiva clear ENT: Hearing grossly normal, nares patent, oropharynx clear without exudates. Moist mucosa NECK: Normal ROM, supple, no lymphadenopathy, JVD, or masses LUNGS: No distress, speaks full sentences, clear to auscultation bilaterally . Absent rales, rhonci. HEART: Regular rate and rhythm, normal S1 and S2, no murmurs, rubs or gallops, peripheral pulses normal and equal bilaterally. EXTREMITIES : Normal inspection, Normal range of motion, no edema. No clubbing or cyanosis. SKIN: Warm, Dry, normal turgor, no rashes or lesions noted Medical Decision Making - Medical Decision Making 01/25/18 20:27 57 yo M with h/o asthma who p/w SOB. VSS, AF. Lungs CTA. S/S likely 2/2 asthma exacerbation. No evidence of fluid/volume overload. Low suspicion CHF. Low suspicion ACS/AL, COPD, AAA, Ao dissection, PNA. Low risk PE based on Weils criteria. Ed Course: Duonebs x 4, Prednisone 60 mg Patient breathing improved following duoneb therapy. Plan to discharge with f/u to PMD. Patient with apt. to Dr. Yan 01/26/18. Prednisone sent to pharmacy Stable for d/c with return precautions. *DC/Admit/Observation/Transfer Diagnosis at time of Disposition: Asthma exacerbation Qualifiers: Asthma severity: mild Asthma persistence: intermittent Qualified Code(s): J45.21 - Mild intermittent asthma with (acute) exacerbation - Discharge Dispostion Condition at time of disposition: Stable Decision to Admit order: No - Prescriptions Prescriptions: Prednisone [Deltasone] 40 mg PO ONCE 4 Days #8 tablet MDD 2 tab - Referrals Referrals: Abraham Kwok MD [Primary Care Provider] - - Patient Instructions Printed Discharge Instructions: Asthma -- Adult Additional Instructions: Please return to the emergency department with any new or worsening symptoms or concerns. Please follow up with your primary care physician within 72 hours. Please take prednsione daily for 4 days. - Post Discharge Activity Forms/Work/School Notes: Back to Work - Attestations Physician Attestion: 01/25/18 19:53 I attest to the information provided in this note.
[2018-01-25] MEDS ORDERED: predniSONE 20 MG TABLET (UD) PO ONE (20:08)
--- NOTE | 2018-01-25 20:22 | PDOC ---
Attending Attestation - Resident Resident Name: Darci Berrios - ED Attending Attestation I have performed the following: I have examined & evaluated the patient, The case was reviewed & discussed with the resident, I agree w/resident's findings & plan, Exceptions are as noted - HPI HPI: 57 yo M history asthma presents with SOB x1 day. Similar to prior asthma exacerbations. +Intermittent dry cough. No fever, no sputum production. - Physicial Exam PE: GENERAL: Awake, alert, and fully oriented, in no acute distress HEAD: No signs of trauma EYES: PERRLA, EOMI, sclera anicteric, conjunctiva clear ENT: Auricles normal inspection, hearing grossly normal, nares patent, oropharynx clear without exudates. Moist mucosa NECK: Normal ROM, supple, no lymphadenopathy, JVD, or masses LUNGS: Dec air entry B/L, no wheezes appreciated. Speaking full sentences. HEART: Regular rate and rhythm, normal S1 and S2, no murmurs, rubs or gallops ABDOMEN: Soft, nontender, normoactive bowel sounds. No guarding, no rebound. No masses EXTREMITIES: Normal range of motion, no edema. No clubbing or cyanosis. No cords, erythema, or tenderness NEUROLOGICAL: Cranial nerves II through XII grossly intact. Normal speech, normal gait SKIN: Warm, Dry, normal turgor, no rashes or lesions noted. - Medical Decision Making Pt with asthma exacerbation. Will give nebs and steroids, likely DC home.
[2018-01-25] MEDS ORDERED: predniSONE 20 MG TABLET (UD) ONE (20:32)
[2018-01-25 21:53] VITALS: BP 131/77; PULSE 83
== END 2018-01-25 22:02 | disposition home or self-care (01) ==
LOC: JER 19:24
PROC: 3E0F7GC Introduction of Other Therapeutic Substance into Respiratory Tract, Via Natural or Artificial Opening (ICD-10-PCS; principal; 2018-01-25)
PROC: 3E0F7GC Introduction of Other Therapeutic Substance into Respiratory Tract, Via Natural or Artificial Opening (ICD-10-PCS; 2018-01-25)
PROC: 3E0F7GC Introduction of Other Therapeutic Substance into Respiratory Tract, Via Natural or Artificial Opening (ICD-10-PCS; 2018-01-25)
PROC: 3E0F7GC Introduction of Other Therapeutic Substance into Respiratory Tract, Via Natural or Artificial Opening (ICD-10-PCS; 2018-01-25)
DX: J45.901 Unspecified asthma with (acute) exacerbation (principal)
CPT/HCPCS: 99282-25; J7620

== ENCOUNTER 2018-09-09 17:37 | Emergency (ER) | payer OTHER ==
[2018-09-09 17:41] VITALS: BP 129/91; PULSE 97; TEMP 97.9; BMI 30.1
[2018-09-09] MEDS ORDERED: ALBUTEROL SO4 2.5/IPRATROPIUM 0.5 INH SOL 3 ML VIAL.NEB. NEB ONE (17:43)
[2018-09-09] MEDS: ALBUTEROL SO4 2.5/IPRATROPIUM 0.5 INH SOL 3 ML VIAL.NEB. NEB SCH ×4 (18:00→19:03)
[2018-09-09] MEDS ORDERED: methylPREDNISolone NA SUCC 125 MG/2 ML VIAL IVPB ONE (18:09)
--- NOTE | 2018-09-09 18:13 | PDOC ---
History of Present Illness - General Chief Complaint: Wheezing Stated Complaint: SOB Time Seen by Provider: 09/09/18 17:57 - History of Present Illness Initial Comments: Indra Batista is a 58yo man with a PMH of asthma (on Spiriva and albuterol nebs at home) who presents with increased SOB starting last night. He reports that he also had increased coughing overnight and today. He used his albuterol at home with some improvement, and he felt well enough to come to work in the morning, but around 3-4pm today started having increased difficulty breathing. Mr Batista reports that he was hospitalized for 5 days at [place] several months ago for asthma exacerbation, but he has never needed to be intubated. He does not believe that he has ever gotten steroids in the past. Prior to last night, he denies any additional symptoms including fever/chills, recent SOB, URI symptoms, or known sick contacts. He is not sure what usually triggers his asthma exacerbations. Past History - Past Medical History Allergies/Adverse Reactions: Allergies Allergy/AdvReac Type Severity Reaction Status Date / Time ciprofloxacin [From Cipro] Allergy Mild Rash Verified 01/25/18 19:37 ciprofloxacin HCl Allergy Mild Rash Verified 01/25/18 19:37 [From Cipro] Home Medications: Ambulatory Orders Montelukast Na [Singulair -] 10 mg PO HS 04/30/17 Albuterol Sulfate Inhaler - [Ventolin Hfa Inhaler -] 1 - 2 inh PO QID #1 inhaler 09/29/17 Prednisone [Deltasone] 40 mg PO ONCE 4 Days #8 tablet MDD 2 tab 01/25/18 Prednisone [Prednisone 50 MG TABLETS] 50 mg PO DAILY #4 tablet MDD 1 tab Prednisone [Deltasone] 40 mg PO DAILY 4 Days #8 tablet 09/09/18 Asthma: Yes COPD: No - Immunization History Immunization Up to Date: Yes - Suicide/Smoking/Psychosocial Hx Smoking Status: No Smoking History: Never smoked Have you smoked in the past 12 months: No Number of Cigarettes Smoked Daily: 0 Information on smoking cessation initiated: No Hx Alcohol Use: No Drug/Substance Use Hx: No Substance Use Type: None Hx Substance Use Treatment: No Respiratory Specific PMHX - Complaint Specific PMHX Angina: No Bronchitis: No Pneumonia: No Pulmonary Embolus: No TB (Tuberculosis): No Other History: Asthma Review of Systems - Review of Systems Comments:: General: No fevers, no chills, no weight or appetite change, no malaise HEENT: No changes in vision, no changes in hearing, no congestion, no sore throat CV: No chest pain, no palpitations, no LE edema Pulm: See HPI GI: No nausea or vomiting, no change in bowel habits, no melena : No frequency, no urgency, no dysuria Musc: No back pain, no joint swelling, no recent injury Skin: No rash, no lesions, no erythema Endo: No excessive thirst, no heat/cold intolerance Heme: No unusual bruising or bleeding, no swollen glands Neuro: No syncope, no numbness/tingling, no focal weakness Vasc: No claudication Psych: No recent change in mood, no SI or HI *Physical Exam - Vital Signs Last Vital Signs Temp Pulse Resp BP Pulse Ox 97.9 F 97 H 22 H 129/91 95 09/09/18 17:38 09/09/18 17:38 09/09/18 17:38 09/09/18 17:38 09/09/18 17:38 - Physical Exam Comments: General: In no acute distress HEENT: PERRL, EOMI, MMM, voice normal. Duoneb mask in place Cards: RRR, no murmur appreciated Pulm: Labored breathing. No wheezing or crackles but very poor air movement b/l Ext: Atraumatic. No LE edema. Vasc: Extremities WWP. Skin: Normal color, no rashes or lesions Neuro: A&Ox3, CN grossly intact, normal speech, motor/sensory grossly intact and symmetric Psych: Mood appropriate to situation ED Treatment Course - LABORATORY CBC & Chemistry Diagram: 09/09/18 18:14 09/09/18 18:14 - RADIOLOGY Radiology Studies Ordered: Category Date Time Status CHEST PA & LAT [RAD] Stat Radiology 09/09/18 18:09 Ordered Medical Decision Making - Medical Decision Making 09/09/18 18:10 Indra Batista is a 58yo man with a PMH of asthma (on Spiriva and albuterol nebs at home) who presents with shortness of breath consistent with asthma exacerbation. - Minimal wheezing but very poor air movement on exam - Received 1x duoneb; additional nebs ordered - CXR, CBC, CMP, EKG - Solu-medrol - Will reassess 09/09/18 18:39 - Pt declining CXR. States that he recently had a CT and was told by his doctor that he should not have any xrays for one month 09/09/18 19:24 - Labs reviewed. Unremarkable - Pt feels better, requesting to be discharged home - Discussed home care, return precautions, follow up with Mr Batista. He states understanding. Will return to the ED if he has persistent symptoms. Seen and discussed w/ Dr Flores. Zhane Silva PGY1 *DC/Admit/Observation/Transfer Diagnosis at time of Disposition: Asthma exacerbation - Discharge Dispostion Disposition: HOME Condition at time of disposition: Stable Decision to Admit order: No - Prescriptions Prescriptions: Prednisone [Deltasone] 40 mg PO DAILY 4 Days #8 tablet - Referrals Referrals: Abraham Kwok MD [Primary Care Provider] - - Patient Instructions Printed Discharge Instructions: DI for Asthma -- Adult Additional Instructions: Discharge Instructions: You were seen in the emergency department for asthma. Your symptoms improved with several nebulizer treatments. You were also given IV steroids to help reduce lung inflammation and symptoms. Home Care and Follow Up: - Continue to use your albuterol every 4 hours as needed for symptoms. Also continue to use your daily inhaler as directed - You have been prescribed a steroid called prednisone. This should be taken daily for 4 days starting tomorrow (Sunday 09/10) until completed. - Make an appointment to see your regular doctor, Dr Kwok, within the next week - Seek immediate medical care if you have continued or worsening symptoms including difficulty breathing, wheezing or coughing, or any other medical emergency. - Post Discharge Activity Forms/Work/School Notes: Back to Work
[2018-09-09 18:40] LABS: BASO % 0.6 % (0-2.0); EOS % 4.4 % (0-4.5); HEMATOCRIT 46.4 % (35.4-49); HEMOGLOBIN 15.2 GM/dL (11.7-16.9); LYMPH % 31.1 % (8-40); MCH 28.8 pg (25.7-33.7); MCHC 32.7 g/dl (32.0-35.9); MEAN CELL VOLUME 88.1 fl (80-96); MEAN PLT VOLUME 7.7 fl (7.5-11.1); MONO % 9.5 % (3.8-10.2); NEUT % 54.4 % (42.8-82.8); PLATELET COUNT 270 K/MM3 (134-434); RBC 5.26 M/mm3 (4.00-5.60); RDW 13.4 % (11.9-15.9); WHITE BLOOD COUNT 8.1 K/mm3 (4.0-10.0)
[2018-09-09 18:57] LABS: ALBUMIN 4.1 g/dl (3.4-5.0); BILIRUBIN,TOTAL 0.5 mg/dL (0.2-1); CALCIUM 9.4 mg/dL (8.5-10.1); MAGNESIUM 2.4 mg/dL (1.8-2.4); PHOSPHOROUS 3.6 mg/dL (2.5-4.9); POTASSIUM 3.5 mmol/L (3.5-5.1); TOT PROT 7.3 g/dl (6.4-8.2)
--- NOTE | 2018-09-09 19:12 | PDOC ---
Documentation entered by Carlitos Painting SCRIBE, acting as scribe for Regina Flores MD. Regina Flores MD: This documentation has been prepared by the herrera, Carlitos Painting SCRIBE, under my direction and personally reviewed by me in its entirety. I confirm that the documentation accurately reflects all work, treatment, procedures, and medical decision making performed by me. Attending Attestation - Resident Resident Name: Zhane Silva - ED Attending Attestation I have performed the following: I have examined & evaluated the patient, The case was reviewed & discussed with the resident, I agree w/resident's findings & plan, Exceptions are as noted - HPI HPI: 09/09/18 19:01 The patient is a 58 year old male with a significant past medical history of asthma (on singulair and albuterol) who presents to the emergency department with wheezing and coughing since last night. The patient states that he was at home last night when he began to experience an onset of his symptoms. The patient states that he used his nebulizer with some relief but, his symptoms returned this morning. The patient states that his coughing and wheezing worsened at about 3pm today by which he used his pump with no apparent relief( endorses using his pump about 4-6 times). It is noted that the patient was recently hospitalized about a month ago with asthma related symptoms at [facility]. He denies any history of intubations or use of any steroids. The patient has received 3 albuterol inhaler treatments in the ED. He denies any other symptoms. He denies any fever, chills, nausea, vomiting, diarrhea, constipation or urinary symptoms. He denies any chest pain, shortness of breath , headache or dizziness. The patient denies any other complaints. - Physicial Exam PE: 09/09/18 18:33 GENERAL: The patient is in no acute distress. ENT: Ears normal, nares patent, oropharynx clear without exudates. Moist mucous membranes. NECK: Normal range of motion, supple LUNGS: Breath sounds equal,expiratory wheezing particularly in the RLL. HEART:Regular rate and rhythm, normal S1 and S2 without murmur, rub or gallop. ABDOMEN: Soft, nontender, normoactive bowel sounds. EXTREMITIES: Normal range of motion, no edema. NEUROLOGICAL: Cranial nerves II through XII grossly intact. Normal speech. No focal neurological deficits. SKIN: Warm, Dry, normal turgor, no rashes or lesions noted. - Medical Decision Making 09/09/18 18:34 58 yo M presenting to the ER with a complaint of asthma exacerbation pt has a h/o mild intermittent asthma Last admission for asthma exacerbation was 1 month ago ([facility]) S/p CT of the chest 1 week ago Pt denies fevers Pt denies productive cough Pt reports the symptoms began this morning He has used his inhaler 6 times today, and albuterol nebs x 3 Mild improvement Will do: Labs Will do CXR Will do EKG Will give Solumedrol Consider Magnesium Pt refused CXR because she states her PMD told him he can have any xrays for the next month Will closely monitor 09/09/18 18:53 Laboratory Tests 09/09/18 18:14 WBC 8.1 Hgb 15.2 Hct 46.4 Plt Count 270 09/09/18 19:14 Laboratory Tests 09/09/18 18:14 Sodium 136 Potassium 3.5 Chloride 102 Carbon Dioxide 25 BUN 28 H Creatinine 1.0 Random Glucose 103 09/09/18 19:35 Pt re assessed He feels better after the Neb treatment He does not want to stay any longer in the ER HE is frustrated that he was not put in a bed but rather a chair I have explained that he must be vigilant about his symptoms If his shortness of breath recurrs, he must return to the ER OR call 911 Follow up with PMD within 1 week
== END 2018-09-09 19:36 | disposition home or self-care (01) ==
LOC: JER 17:37
PROC: 3E0F7GC Introduction of Other Therapeutic Substance into Respiratory Tract, Via Natural or Artificial Opening (ICD-10-PCS; principal; 2018-09-09)
PROC: 3E0333Z Introduction of Anti-inflammatory into Peripheral Vein, Percutaneous Approach (ICD-10-PCS; 2018-09-09)
DX: J45.901 Unspecified asthma with (acute) exacerbation (principal)
CPT/HCPCS: 36415; 80053; 83735; 84100; 85025; 99281-25

== ENCOUNTER 2019-03-03 18:08 | Emergency (ER) | payer OTHER ==
[2019-03-03] MEDS ORDERED: ALBUTEROL SO4 2.5/IPRATROPIUM 0.5 INH SOL 3 ML VIAL.NEB. NEB ONE ×2 (18:10→18:55)
[2019-03-03 18:28] VITALS: TEMP 98; BMI 30.1
[2019-03-03] MEDS ORDERED: methylPREDNISolone NA SUCC 125 MG/2 ML VIAL IVPUSH ONE (19:01)
[2019-03-03 19:02] LABS: BASO % 0.7 % (0-2.0); EOS % 4.9 % (0-4.5); HEMOGLOBIN 14.9 GM/dL (11.7-16.9); LYMPH % 23.6 % (8-40); MCH 29.4 pg (25.7-33.7); MCHC 33.1 g/dl (32.0-35.9); MEAN CELL VOLUME 88.8 fl (80-96); MEAN PLT VOLUME 8.1 fl (7.5-11.1); MONO % 8.2 % (3.8-10.2); NEUT % 62.6 % (42.8-82.8); PLATELET COUNT 294 K/MM3 (134-434); RBC 5.06 M/mm3 (4.00-5.60); RDW 13.7 % (11.9-15.9); WHITE BLOOD COUNT 7.5 K/mm3 (4.0-10.0)
[2019-03-03 19:31] LABS: BILIRUBIN,TOTAL 0.6 mg/dL (0.2-1); BLOOD UREA NITROGEN 28.1 mg/dL (7-18); POTASSIUM 4.1 mmol/L (3.5-5.1); TOT PROT 6.9 g/dl (6.4-8.2)
--- NOTE | 2019-03-03 19:31 | PDOC ---
History of Present Illness - General Chief Complaint: Shortness of Breath Stated Complaint: DIFFICULTY BREATHING Time Seen by Provider: 03/03/19 18:59 History Source: Patient - History of Present Illness Initial Comments: 03/03/19 20:10 Mr. Batista is a 58 y/o man with hx asthma presenting with acute onset shortness of breath that began this morning. He reports that he was awoke at approx 0500 by difficulty breathing with wheezes. He reports taking 4x treatments with his singulair nebulizer, as well as using his rescue inhaler. He reports feeling mildly improved at that time but not entirely well, and called out sick to his morning job at [employer]. He also works at [employer], and presented for his scheduled shift today at 1530. He reports feeling progressively more short of breath while at work, and decided to seek evaluation at 1800. He denies any chest pain, lower extremity edema, fevers, chills, weakness, or pain anywhere. Is this a multiple visit Asthma Patient?: Yes Past History - Past Medical History Allergies/Adverse Reactions: Allergies Allergy/AdvReac Type Severity Reaction Status Date / Time ciprofloxacin [From Cipro] Allergy Mild Rash Verified 03/03/19 18:23 ciprofloxacin HCl Allergy Mild Rash Verified 03/03/19 18:23 [From Cipro] Home Medications: Ambulatory Orders Montelukast Na [Singulair -] 10 mg PO HS 04/30/17 Albuterol Sulfate Inhaler - [Ventolin Hfa Inhaler -] 1 - 2 inh PO QID #1 inhaler 09/29/17 Fluticasone Propionate [Flovent Hfa] 44 mcg IH BID #1 inh 03/03/19 Prednisone [Deltasone] 40 mg PO DAILY 10 Days #10 tablet 03/03/19 Asthma: Yes COPD: No - Immunization History Immunization Up to Date: Yes - Psycho Social/Smoking Cessation Hx Smoking Status: No Smoking History: Never smoked Have you smoked in the past 12 months: No Number of Cigarettes Smoked Daily: 0 Information on smoking cessation initiated: No Hx Alcohol Use: No Drug/Substance Use Hx: No Substance Use Type: None Hx Substance Use Treatment: No Review of Systems - Review of Systems Able to Perform ROS?: Yes Comments:: 03/03/19 19:32 ROS: GENERAL/CONSTITUTIONAL: No fever or chills. No weakness. HEAD, EYES, EARS, NOSE AND THROAT: No change in vision. No ear pain or discharge. No sore throat. CARDIOVASCULAR: No chest pain RESPIRATORY: Cough, wheezing, shortness of breath. No hemoptysis. GASTROINTESTINAL: No nausea, vomiting, diarrhea or constipation. GENITOURINARY: No dysuria, frequency, or change in urination. MUSCULOSKELETAL: No joint or muscle swelling or pain. No neck or back pain. SKIN: No rash NEUROLOGIC: No headache, vertigo, loss of consciousness, or change in strength/ sensation. ENDOCRINE: No increased thirst. No abnormal weight change HEMATOLOGIC/LYMPHATIC: No anemia, easy bleeding, or history of blood clots. ALLERGIC/IMMUNOLOGIC: No hives or skin allergy. *Physical Exam - Vital Signs Last Vital Signs Temp Pulse Resp BP Pulse Ox 98 F 82 19 135/83 98 03/03/19 18:21 03/03/19 18:21 03/03/19 18:21 03/03/19 18:21 03/03/19 18:23 - Physical Exam Comments: 03/03/19 19:31 PE: GENERAL: Awake, alert, and fully oriented, in no acute distress HEAD: No signs of trauma, normocephalic, atraumatic EYES: PERRLA, EOMI, sclera anicteric, conjunctiva clear ENT: Auricles normal inspection, hearing grossly normal, nares patent, oropharynx clear without exudates. Moist mucosa NECK: Normal ROM, supple, no lymphadenopathy, JVD, or masses LUNGS: Minimal lung sounds diffusely. No distress, speaks full sentences. HEART: Regular rate and rhythm, normal S1 and S2, no murmurs, rubs or gallops, peripheral pulses normal and equal bilaterally. ABDOMEN: Soft, nontender, normoactive bowel sounds. No guarding, no rebound. No masses EXTREMITIES : Normal inspection, Normal range of motion, no edema. No clubbing or cyanosis NEUROLOGICAL: Cranial nerves II through XII grossly intact. Normal speech, normal gait, no focal sensorimotor deficits SKIN: Warm, Dry, normal turgor, no rashes or lesions noted ED Treatment Course - LABORATORY CBC & Chemistry Diagram: 03/03/19 18:44 03/03/19 18:44 - ADDITIONAL ORDERS Additional order review: 03/03/19 18:44 RBC 5.06 MCV 88.8 MCHC 33.1 RDW 13.7 MPV 8.1 Neutrophils % 62.6 Lymphocytes % 23.6 D Monocytes % 8.2 Eosinophils % 4.9 H Basophils % 0.7 - RADIOLOGY Radiology Studies Ordered: Category Date Time Status CHEST X-RAY PORTABLE* [RAD] Stat Radiology 03/03/19 18:39 Ordered - Medications Given in the ED: ED Medications Discontinued Medications Generic Name Dose Route Start Last Admin Trade Name Freq PRN Reason Stop Dose Admin Albuterol/Ipratropium 3 amp 03/03/19 18:55 03/03/19 19:00 Duoneb - NEB 03/03/19 18:56 3 amp ONCE ONE Administration Medical Decision Making - Medical Decision Making 03/03/19 19:25 58M with hx asthma p/w acute onset shortness of breath and wheezing since 5am, temporized with home nebulizer treatments but worsened while at work, consistent with asthma exacerbation. Plan: CBC CMP Cardiac profile EKG CXR Duoneb x3 Solumedrol Serial pulmonary exam assessments Asthma action plan discussion Dispo: Pending, likely discharge home --- On reassessment, he reports feeling well. Plan for asthma action plan discussion and discharge home pending chest x ray read. 03/03/19 20:50 Reviewed asthma action plan. Plan for Prednisone 40 mg x 10 days, Flovent HFA 44mcg BID CXR reviewed with Dr. Deluca. Plan for discharge Discharge - Discharge Information Problems reviewed: Yes Clinical Impression/Diagnosis: Asthma exacerbation Qualifiers: Asthma severity: unspecified severity Asthma persistence: unspecified Qualified Code(s): J45.901 - Unspecified asthma with (acute) exacerbation Condition: Stable Disposition: HOME - Admission No - Additional Discharge Information Prescriptions: Fluticasone Propionate [Flovent Hfa] 44 mcg IH BID #1 inh Prednisone [Deltasone] 40 mg PO DAILY 10 Days #10 tablet - Follow up/Referral - Patient Discharge Instructions Patient Printed Discharge Instructions: DI for Asthma -- Adult Additional Instructions: You were seen in the ER for an asthma exacerbation. Your labs were normal. Please follow up with your primary care provider as soon as possible, within the next 3 days. We are prescribing you Prednisone - a steroid that can help your breathing. Please take it as directed for 10 days. We are also prescribing you another inhaler, Flovent. This is a low dose inhaled steroid that can help your breathing as well. Please take it every 12 hours, even if you are feeling better. - Post Discharge Activity Work/Back to School Note: Back to Work
[2019-03-03] MEDS ORDERED: methylPREDNISolone NA SUCC 125 MG/2 ML VIAL ONE (19:44)
--- NOTE | 2019-03-03 19:54 | PDOC ---
Documentation entered by Rocky Mcgee SCRIBE, acting as scribe for Carlos Deluca MD. Carlos Deluca MD: This documentation has been prepared by the Everardo silverman Xhesika, SCRIBE, under my direction and personally reviewed by me in its entirety. I confirm that the documentation accurately reflects all work, treatment, procedures, and medical decision making performed by me. Attending Attestation - Resident Resident Name: HilariaNeel - ED Attending Attestation I have performed the following: I have examined & evaluated the patient, The case was reviewed & discussed with the resident, I agree w/resident's findings & plan, Exceptions are as noted - HPI HPI: 03/03/19 19:42 The patient is a 58 year old male with a significant PMH of asthma (last exacerbation 2 months ago) who presents to the emergency department acutely short of breath since 5am. Patient notes he works at [employer] and [facility] [facility] [employer], was double booked, so he called out at [employer], came to work here at 3:30 and around 6pm his symptoms started worsening, which prompted his arrival to the ED. Patient notes his current symptoms are similar to his previous asthma exacerbations so he used his inhaler and nebulizer with minimal relief of symptoms. The patient denies chest pain, headache and dizziness. Denies fever, chills, cough, nausea, vomiting, diarrhea and constipation. Denies dysuria, frequency, urgency and hematuria. Allergies: ciprofloxacin, ciprofloxacin HCl - Physicial Exam PE: 03/03/19 19:42 GENERAL: The patient is awake, alert, and fully oriented, Nontoxic - in no acute distress LUNGS: mild scattered wheezing HEART: Regular rate and rhythm, normal S1 and S2 without murmur, rub or gallop. 1 - Medical Decision Making 03/03/19 19:53 Suspect mild asthma exacerbation patient feels improved nebulizers will give patient prednisone Chest x-ray to rule out pneumonia As the patient is feeling improved as of a discharge with PMD follow-up return precautions were discussed 03/03/19 20:32 enmanuel start ICS, asthma action plan initiated will have pt fu wiht PMD Heart Score/ECG Review - ECG Impressions Comment:: 03/03/19 21:17 Twelve-lead EKG was performed and reviewed by me. There is normal sinus rhythm with a normal rate. Rate of 80 The axis is normal. The intervals are normal. There is normal R wave progression There are no ST or T wave abnormalities. Impression: Normal twelve-lead EKG
[2019-03-03 20:13] VITALS: BP 114/77; PULSE 74
--- NOTE | 2019-03-04 13:58 | EKG ---
Test Reason : Blood Pressure : / mmHG Vent. Rate : 080 BPM Atrial Rate : 080 BPM P-R Int : 190 ms QRS Dur : 108 ms QT Int : 392 ms P-R-T Axes : 023 -02 031 degrees QTc Int : 452 ms NORMAL SINUS RHYTHM NORMAL ECG WHEN COMPARED WITH ECG OF 30-APR-2017 15:53, LEFT POSTERIOR FASCICULAR BLOCK IS NO LONGER PRESENT CRITERIA FOR INFERIOR INFARCT ARE NO LONGER PRESENT Confirmed by CHUYITA RUELAS MD ([id number]) on 03/04/2019 1:57:52 PM Referred By: Confirmed By:CHUYITA RUELAS MD
[2019-03-04] MEDS ORDERED: methylPREDNISolone NA SUCC 125 MG/2 ML VIAL IVPUSH ONE (18:56)
== END 2019-03-03 21:21 | disposition home or self-care (01) ==
LOC: JER 18:08
PROC: 3E0F7GC Introduction of Other Therapeutic Substance into Respiratory Tract, Via Natural or Artificial Opening (ICD-10-PCS; principal; 2019-03-03)
PROC: 3E0333Z Introduction of Anti-inflammatory into Peripheral Vein, Percutaneous Approach (ICD-10-PCS; 2019-03-03)
DX: J45.901 Unspecified asthma with (acute) exacerbation (principal)
CPT/HCPCS: 36415; 71045-TC-FY; 80053; 82550; 82553; 84484; 85025; 93005; 93010; 99284-25

== ENCOUNTER 2019-06-16 16:07 | Emergency (ER) | payer OTHER ==
[2019-06-16] MEDS ORDERED: ALBUTEROL SO4 2.5/IPRATROPIUM 0.5 INH SOL 3 ML VIAL.NEB. NEB ONE ×2 (16:12→16:34)
[2019-06-16] MEDS ORDERED: predniSONE 20 MG TABLET (UD) PO ONE (16:12)
--- NOTE | 2019-06-16 16:12 | PDOC ---
Rapid Medical Evaluation Time Seen by Provider: 06/16/19 16:10 Medical Evaluation: Allergies Allergy/AdvReac Type Severity Reaction Status Date / Time ciprofloxacin [From Cipro] Allergy Mild Rash Verified 06/16/19 16:10 ciprofloxacin HCl Allergy Mild Rash Verified 06/16/19 16:10 [From Cipro] 06/16/19 16:10 CC: SOB PE: No respiratory distress. Lungs CTAB. +dry cough with audible wheezes during cough. Orders: nebs, prednisone Patient will proceed to ED for continued evaluation. Discharge Disposition - Diagnosis Asthma - Referrals - Patient Instructions - Post Discharge Activity
[2019-06-16 16:13] VITALS: BP 148/80; PULSE 81; TEMP 97.8; BMI 32.5
[2019-06-16] MEDS ORDERED: predniSONE 20 MG TABLET (UD) ONE (16:14)
[2019-06-16] MEDS: ALBUTEROL SO4 2.5/IPRATROPIUM 0.5 INH SOL 3 ML VIAL.NEB. NEB SCH ×4 (16:17→17:14)
--- NOTE | 2019-06-16 16:22 | PDOC ---
History of Present Illness - General Chief Complaint: Asthma Stated Complaint: WHEEZING/DIFFICULTY BREATHING Time Seen by Provider: 06/16/19 16:10 History Source: Patient - History of Present Illness Initial Comments: 06/16/19 16:53 Complaint: Asthma Patient is a 58-year-old male with a history of asthma. Last seen at [facility] on , started on steroids, was better by Thursday. He states yesterday it started getting worse again and today he was at work at [employer] and had difficulty breathing. No fever or history of flu or recent illness. Patient uses albuterol inhaler. Patient is getting DuoNeb treatment during evaluation is starting to feel better. Patient is able to speak. GENERAL/CONSTITUTIONAL: No fever, weakness. dizziness HEAD, EYES, EARS, NOSE AND THROAT: No change in vision. No ear pain or discharge. No sore throat. CARDIOVASCULAR: No chest pain RESPIRATORY: +shortness of breath or cough GASTROINTESTINAL: No pain, nausea, vomiting, diarrhea or constipation GENITOURINARY: No dysuria MUSCULOSKELETAL: No neck or back pain SKIN: No rash NEUROLOGIC: No headache, vertigo, loss of consciousness, or loss of sensation. GENERAL: The patient is awake, alert, and fully oriented, in no acute distress. HEAD: Normal with no signs of trauma. EYES: Pupils equal, round and reactive to light, sclera anicteric, conjunctiva clear. ENT: pharynx: no erythema, no exudate, uvula midline NECK: supple CHEST: Bilateral wheezing, nontender, rr ABD: soft, nontender BACK: no tenderness or signs of injury EXTREMITIES: Normal range of motion, no edema. NEUROLOGICAL: Normal speech, normal gait. SKIN: Warm, Dry Past History - Past Medical History Allergies/Adverse Reactions: Allergies Allergy/AdvReac Type Severity Reaction Status Date / Time ciprofloxacin [From Cipro] Allergy Mild Rash Verified 06/16/19 16:10 ciprofloxacin HCl Allergy Mild Rash Verified 06/16/19 16:10 [From Cipro] Home Medications: Ambulatory Orders Montelukast Na [Singulair -] 10 mg PO HS 04/30/17 Albuterol Sulfate Inhaler - [Ventolin Hfa Inhaler -] 1 - 2 inh PO QID #1 inhaler 09/29/17 Fluticasone Propionate [Flovent Hfa] 44 mcg IH BID #1 inh 03/03/19 Fluticasone Propionate [Flovent Hfa] 44 mcg IH BID #1 inh 03/03/19 predniSONE [Deltasone] 40 mg PO DAILY 10 Days #10 tablet 03/03/19 predniSONE [Deltasone] 40 mg PO DAILY 4 Days #8 tablet 03/03/19 Albuterol Sulfate Inhaler - [Ventolin HFA Inhaler -] 2 inh PO Q4H #1 inh Montelukast Sodium [Singulair] 10 mg PO DAILY #30 tablet 06/16/19 predniSONE [Deltasone -] 40 mg PO DAILY #8 tablet 06/16/19 Asthma: Yes COPD: No - Immunization History Immunization Up to Date: Yes - Psycho Social/Smoking Cessation Hx Smoking Status: No Smoking History: Never smoked Have you smoked in the past 12 months: No Number of Cigarettes Smoked Daily: 0 Hx Alcohol Use: No Drug/Substance Use Hx: No Substance Use Type: None Hx Substance Use Treatment: No *Physical Exam - Vital Signs Last Vital Signs Temp Pulse Resp BP Pulse Ox 97.8 F 81 24 H 148/80 97 06/16/19 16:10 06/16/19 16:10 06/16/19 16:10 06/16/19 16:10 06/16/19 16:10 ED Treatment Course - Medications Given in the ED: ED Medications Discontinued Medications Generic Name Dose Route Start Last Admin Trade Name Ganeshq PRN Reason Stop Dose Admin Prednisone 60 mg 06/16/19 16:12 06/16/19 16:17 Deltasone - PO 06/16/19 16:13 60 mg ONCE ONE Administration Medical Decision Making - Medical Decision Making 06/16/19 16:54 58-year-old male with history of asthma, not recently admitted but had episode last week where he was treated outpatient with prednisone for 5 days, finished it Thursday and 2 days later started having shortness of breath yesterday. This was yesterday and is now having wheezing and in the ER. Patient is not hypoxic , he is able to speak easily. Is feeling better with the first treatment. He was given prednisone, ordered from triage. Unlikely needs to be admitted. Will need another dose of steroids and follow-up with his doctor. No fever and no indication for labs or chest x-ray. 06/16/19 18:05 Patient improved after treatments and prednisone. Lungs clear, no signs of respiratory distress. No indication for further work-up or admission. Patient will be placed back on prednisone and follow-up with his doctor by Thursday Discussed issues, findings, results, applicable medications and treatments and follow-up. All these were understood and all questions were answered 06/16/19 18:13 Patient requested refill for albuterol and Singulair. Sent to pharmacy, patient aware he needs to follow-up this week Discharge - Discharge Information Problems reviewed: Yes Clinical Impression/Diagnosis: Asthma Condition: Stable Disposition: HOME - Admission No - Additional Discharge Information Prescriptions: Albuterol Sulfate Inhaler - [Ventolin HFA Inhaler -] 2 inh PO Q4H #1 inh Montelukast Sodium [Singulair] 10 mg PO DAILY #30 tablet predniSONE [Deltasone -] 40 mg PO DAILY #8 tablet - Follow up/Referral - Patient Discharge Instructions Patient Printed Discharge Instructions: Asthma -- Adult Additional Instructions: Use albuterol inhaler, 2 puffs every 4 hours as needed for wheezing. Take prednisone 40 mg once daily until finished. Take Pepcid 20 mg once daily to help protect your stomach from the prednisone since you are on it recently Return to the ER if fever, shortness of breath or getting sicker. Otherwise follow-up with your doctor in one to 2 days - Post Discharge Activity Work/Back to School Note: Back to Work
== END 2019-06-16 18:13 | disposition home or self-care (01) ==
LOC: JERFT 16:07
PROC: 3E0F7GC Introduction of Other Therapeutic Substance into Respiratory Tract, Via Natural or Artificial Opening (ICD-10-PCS; principal; 2019-06-16)
DX: J45.909 Unspecified asthma, uncomplicated (principal); Z88.1 Allergy status to other antibiotic agents
CPT/HCPCS: 99284-25

== ENCOUNTER 2020-01-05 16:14 | Emergency (ER) | payer OTHER ==
[2020-01-05 16:18] VITALS: BP 133/97; PULSE 83; TEMP 98.4; BMI 29.9
[2020-01-05] MEDS ORDERED: ALBUTEROL SO4 2.5/IPRATROPIUM 0.5 INH SOL 3 ML VIAL.NEB. NEB ONE (16:20)
[2020-01-05] MEDS: ALBUTEROL SO4 2.5/IPRATROPIUM 0.5 INH SOL 3 ML VIAL.NEB. NEB SCH ×4 (16:29→17:18)
--- NOTE | 2020-01-05 17:00 | PDOC ---
History of Present Illness - General Chief Complaint: Asthma Stated Complaint: ASTHMA Time Seen by Provider: 01/05/20 16:26 History Source: Patient, Old Records Exam Limitations: No Limitations - History of Present Illness Initial Comments: 01/05/20 16:58 HISTORY OF PRESENT ILLNESS: 59-year-old male past medical history of asthma presents emergency department for evaluation of shortness of breath and audibly wheezing. Patient denies any fevers, chills, cough, chest pain. Patient is unsure what triggered his shortness of breath and wheezing. No recent travel or sick contacts. PAST MEDICAL HISTORY: Denies past medical history SURGICAL HISTORY: Denies ALLERGIES: Cipro REVIEW OF SYSTEMS General/Constitutional: Denies fever or chills. Denies weakness, weight change. HEENT: Denies change in vision. Denies ear pain or discharge. Denies sore throat. Cardiovascular: Denies chest pain or shortness of breath. Respiratory: See HPI Gastrointestinal: Denies nausea, vomiting, diarrhea or constipation. Denies rectal bleeding. Genitourinary: Denies dysuria, frequency, or change in urination. Musculoskeletal: Denies joint or muscle swelling or pain. Denies neck or back pain. Skin and breasts: Denies rash or easy bruising. Neurologic: Denies headache, vertigo, loss of consciousness, or loss of sensation. Psychiatric: Denies depression or anxiety. Endocrine: Denies increased thirst. Denies abnormal weight change. Hematologic/Lymphatic: Denies anemia, easy bleeding, or history of blood clots. Allergic/Immunologic: Denies hives or skin allergy. Denies latex allergy. PHYSICAL EXAM General Appearance: Well-appearing, appropriately dressed. No apparent distress, no intoxication. Respiratory/Chest: Lungs CTAB. No shortness of breath, chest tenderness, respiratory distress, accessory muscle use. No crackles, rales, rhonchi, stridor, dullness. The few scattered wheezes present. Speaking in full sentences. Cardiovascular: RRR. S1, S2. No JVD, murmur, bradycardia, tachycardia. Vascular Pulses: Dorsalis-Pedis (R): 2+, Dorsalis-Pedis (L): 2+ Integumentary: Appropriate color, dry, warm. No cyanosis, erythema, jaundice or rash Past History - Medical History Allergies/Adverse Reactions: Allergies Allergy/AdvReac Type Severity Reaction Status Date / Time ciprofloxacin [From Cipro] Allergy Mild Rash Verified 01/05/20 16:18 ciprofloxacin HCl Allergy Mild Rash Verified 01/05/20 16:18 [From Cipro] Home Medications: Ambulatory Orders Montelukast Na [Singulair -] 10 mg PO HS 04/30/17 Albuterol Sulfate Inhaler - [Ventolin Hfa Inhaler -] 1 - 2 inh PO QID #1 inhaler 09/29/17 Fluticasone Propionate [Flovent Hfa] 44 mcg IH BID #1 inh 03/03/19 Fluticasone Propionate [Flovent Hfa] 44 mcg IH BID #1 inh 03/03/19 predniSONE [Deltasone] 40 mg PO DAILY 10 Days #10 tablet 03/03/19 predniSONE [Deltasone] 40 mg PO DAILY 4 Days #8 tablet 03/03/19 Albuterol Sulfate Inhaler - [Ventolin HFA Inhaler -] 2 inh PO Q4H #1 inh 06/16/19 Montelukast Sodium [Singulair] 10 mg PO DAILY #30 tablet 06/16/19 predniSONE [Deltasone -] 40 mg PO DAILY #8 tablet 06/16/19 Asthma: Yes COPD: No - Immunization History Immunization Up to Date: Yes - Psycho-Social/Smoking History Smoking Status: No Smoking History: Never smoked Have you smoked in the past 12 months: No Number of Cigarettes Smoked Daily: 0 Information on smoking cessation initiated: No - Substance Abuse Hx (Audit-C & DAST Scrn) How often the patient has a drink containing alcohol: Never Score: In Men: 4 or > Positive; In Women: 3 or > Positive: 0 Screen Result (Pos requires Nsg. Audit-10AR): Negative In the last yr the pt used illegal drug/Rx for NonMed reason: No Score: Yes response is considered Positive: 0 Screen Result (Positive result requires Nsg. DAST-10): Negative Respiratory Specific PMHX - Complaint Specific PMHX Hx Bronchitis: No Hx Pneumonia: No Hx Pulmonary Embolus: No Hx TB (Tuberculosis): No *Physical Exam - Vital Signs Last Vital Signs Temp Pulse Resp BP Pulse Ox 98.4 F 83 23 H 133/97 95 01/05/20 16:15 01/05/20 16:15 01/05/20 16:15 01/05/20 16:15 01/05/20 16:15 Medical Decision Making - Medical Decision Making 01/05/20 16:57 A/P: 59-year-old male with asthma exacerbation Nebulizer treatments Patient is refusing steroids at this time Reevaluation of lungs reveals clear lungs. Patient is requesting discharge at this time. Patient reports he does not need any refills of his medications. I discussed the physical exam findings, ancillary test results and final diagnoses with the patient. I answered all of the patient's questions. The patient was satisfied with the care received and felt comfortable with the discharge plan and treatment plan. The patient will call their primary care physician within 24 hours to arrange follow-up and will return to the Emergency Department with any new, persistent or worsening symptoms. Portions of this note have been documented using voice recognition software. As a result, errors may occur in the animal herder process. Effort has been made to correct all grammatical and animal herder error, but some may have been missed which may produce sporadic inaccurate animal herder or nonsensical phrases. Discharge - Discharge Information Problems reviewed: Yes Clinical Impression/Diagnosis: Asthma exacerbation Qualifiers: Asthma severity: mild Asthma persistence: intermittent Qualified Code(s): J45.21 - Mild intermittent asthma with (acute) exacerbation Condition: Stable Disposition: HOME - Admission No - Follow up/Referral - Patient Discharge Instructions Additional Instructions: Rest, drink lots of fluids: Teas, water, soups, Pedialyte Saltwater gargles Steamy showers/seem to face break up mucus Avoid contact with others until fevers and cough resolved Lots of handwashing and good hygiene Continue [id number] medications for symptomatic relief Tylenol or Motrin for fever and pain Followup with private physician in one to 2 days Return to emergency department / pediatric hospital for worsened symptoms, fevers, dehydration Descansar, beber un montn de lquidos: ts, agua, sopas, Pedialyte Grgaras de agua salada Duchas vaporosas/parecen enfrentarse a la mucosidad de ruptura Evite el contacto con otras personas hasta que se resuelvan las fiebres y la tos Un montn de lavado de arun y buena higiene Contine con los medicamentos de venta thelma para el alivio sintomtico Tylenol o Motrin para la fiebre y el dolor Seguimiento con el mdico privado en craig a 2 rucker Regreso al departamento de urgencias / hospital peditrico para empeoramiento de los sntomas, fiebre, deshidratacin - Post Discharge Activity
== END 2020-01-05 17:20 | disposition home or self-care (01) ==
LOC: JERFT 16:14
PROC: 3E0F7GC Introduction of Other Therapeutic Substance into Respiratory Tract, Via Natural or Artificial Opening (ICD-10-PCS; principal; 2020-01-05)
DX: J45.21 Mild intermittent asthma with (acute) exacerbation (principal)
CPT/HCPCS: 99284-25

== ENCOUNTER 2020-03-20 16:15 | Emergency (ER) | payer OTHER ==
[2020-03-20 16:23] VITALS: BP 151/88; PULSE 98; TEMP 98.6; BMI 28.8
[2020-03-20] MEDS ORDERED: DEXAMETHASONE LIQUID 0.5 MG/5 ML PO ONE (16:37)
[2020-03-20] MEDS ORDERED: ALBUTEROL SO4 HFA INHALER IH ONE ×2 (16:37→16:42)
[2020-03-20] MEDS ORDERED: DEXAMETHASONE SOD PHOSPHATE 10 MG/1 ML VIAL ONE (16:42)
== END 2020-03-20 17:11 | disposition home or self-care (01) ==
LOC: JERFT 16:15
PROC: 3E0F7GC Introduction of Other Therapeutic Substance into Respiratory Tract, Via Natural or Artificial Opening (ICD-10-PCS; principal; 2020-03-20)
DX: R05 Cough (principal)
CPT/HCPCS: 71046-TC-FY; 87804; 99285-25; C9803; U0003

== ENCOUNTER 2020-06-13 15:44 | Emergency (ER) | payer OTHER ==
[2020-06-13 16:00] VITALS: TEMP 97.7; BMI 30.4
[2020-06-13] MEDS ORDERED: ALBUTEROL SO4 2.5/IPRATROPIUM 0.5 INH SOL 3 ML VIAL.NEB. NEB ONE ×2 (16:20→17:33)
[2020-06-13] MEDS: ALBUTEROL SO4 2.5/IPRATROPIUM 0.5 INH SOL 3 ML VIAL.NEB. NEB SCH ×4 (17:18→18:15)
[2020-06-13] MEDS ORDERED: predniSONE 20 MG TABLET (UD) PO ONE (19:00)
[2020-06-13] MEDS ORDERED: predniSONE 20 MG TABLET (UD) ONE (19:36)
[2020-06-13 19:37] LABS: BASO % 0.3 % (0-2.0); EOS % 3.8 % (0-4.5); HEMATOCRIT 43.1 % (35.4-49); HEMOGLOBIN 14.5 GM/dL (11.7-16.9); LYMPH % 19.1 % (8-40); MCH 29.9 pg (25.7-33.7); MCHC 33.7 g/dl (32.0-35.9); MEAN CELL VOLUME 88.6 fl (80-96); MEAN PLT VOLUME 8.1 fl (7.5-11.1); MONO % 7.8 % (3.8-10.2); PLATELET COUNT 289 K/MM3 (134-434); RBC 4.86 M/mm3 (4.00-5.60); RDW 13.8 % (11.9-15.9); WHITE BLOOD COUNT 7.4 K/mm3 (4.0-10.0)
[2020-06-13 19:43] LABS: INR 0.91 (0.83-1.09); PROTHROMBIN TIME (PATIENT) 11.1 SEC (9.7-13.0)
[2020-06-13 19:46] LABS: ACTIVATED PTT 32.6 SECONDS (25.2-36.5)
[2020-06-13 19:54] LABS: POTASSIUM 3.7 mmol/L (3.5-5.1)
[2020-06-13 19:57] LABS: CALCIUM 9.1 mg/dL (8.5-10.1)
[2020-06-13 19:58] LABS: ALBUMIN 3.8 g/dl (3.4-5.0); BLOOD UREA NITROGEN 28.6 mg/dL (7-18)
[2020-06-13 20:01] VITALS: BP 130/86; PULSE 72
[2020-06-13 20:01] LABS: CREATININE 1.1 mg/dL (0.55-1.3)
[2020-06-13 20:03] LABS: BILIRUBIN,TOTAL 0.5 mg/dL (0.2-1); TOT PROT 6.9 g/dl (6.4-8.2)
== END 2020-06-13 21:10 | disposition home or self-care (01) ==
LOC: JER 15:44
PROC: 3E0F7GC Introduction of Other Therapeutic Substance into Respiratory Tract, Via Natural or Artificial Opening (ICD-10-PCS; principal; 2020-06-13)
DX: J45.21 Mild intermittent asthma with (acute) exacerbation (principal)
CPT/HCPCS: 36415; 71046-TC-FY; 80053; 85025; 85379; 85610; 85730; 93005; 93010; 99285-25

== ENCOUNTER 2021-02-05 20:50 | Emergency (ER) | payer OTHER ==
[2021-02-05 21:20] VITALS: BP 126/79; PULSE 66; TEMP 97.9; BMI 25.8
[2021-02-05] MEDS ORDERED: METOCLOPRAMIDE HCL INJECTION 10 MG/2 ML VIAL IVPUSH ONE (21:43)
[2021-02-05] MEDS ORDERED: SODIUM CHLORIDE 0.9% 500 ML INFUS.BAG IV ONE (21:44)
[2021-02-05] MEDS ORDERED: METOCLOPRAMIDE HCL INJECTION 10 MG/2 ML VIAL ONE (21:50)
== END 2021-02-05 22:35 | disposition home or self-care (01) ==
LOC: JER 20:50
PROC: 3E033NZ Introduction of Analgesics, Hypnotics, Sedatives into Peripheral Vein, Percutaneous Approach (ICD-10-PCS; principal; 2021-02-05)
PROC: 3E033GC Introduction of Other Therapeutic Substance into Peripheral Vein, Percutaneous Approach (ICD-10-PCS; 2021-02-05)
DX: G44.209 Tension-type headache, unspecified, not intractable (principal)
CPT/HCPCS: 99285-25

== ENCOUNTER 2021-05-21 16:09 | Emergency (ER) | payer OTHER ==
[2021-05-21 16:25] VITALS: BMI 28.8
[2021-05-21] MEDS: ALBUTEROL SO4 2.5/IPRATROPIUM 0.5 INH SOL 3 ML VIAL.NEB. NEB SCH ×3 (16:30→17:00)
[2021-05-21] MEDS ORDERED: predniSONE 20 MG TABLET (UD) PO ONE (16:43)
[2021-05-21] MEDS ORDERED: ALBUTEROL SO4 2.5/IPRATROPIUM 0.5 INH SOL 3 ML VIAL.NEB. NEB ONE (17:09)
[2021-05-21] MEDS ORDERED: predniSONE 20 MG TABLET (UD) ONE ×2 (17:09→17:10)
[2021-05-21 18:29] VITALS: BP 133/82; PULSE 74
== END 2021-05-21 18:29 | disposition home or self-care (01) ==
LOC: JER 16:09
PROC: 3E0F7GC Introduction of Other Therapeutic Substance into Respiratory Tract, Via Natural or Artificial Opening (ICD-10-PCS; principal; 2021-05-21)
DX: J45.901 Unspecified asthma with (acute) exacerbation (principal)
CPT/HCPCS: 71045-TC-FY; 71046-TC-FY; 82962; 93005; 93010; 99285-25

== ENCOUNTER 2021-11-06 15:25 | Emergency (ER) | payer OTHER ==
[2021-11-06 15:41] VITALS: TEMP 98.4; BMI 30.1
[2021-11-06] MEDS ORDERED: DEXAMETHASONE SOD PHOSPHATE 10 MG/1 ML VIAL IM ONE (16:04)
[2021-11-06] MEDS: ALBUTEROL SO4 2.5/IPRATROPIUM 0.5 INH SOL 3 ML VIAL.NEB. NEB SCH ×3 (16:06→18:03)
[2021-11-06] MEDS ORDERED: ALBUTEROL SO4 2.5/IPRATROPIUM 0.5 INH SOL 3 ML VIAL.NEB. NEB ONE ×2 (16:18→17:53)
[2021-11-06] MEDS ORDERED: DEXAMETHASONE SOD PHOSPHATE 10 MG/1 ML VIAL ONE (16:18)
[2021-11-06] MEDS ORDERED: ALBUTEROL SO4 0.5 % INH SOLN 2.5 MG/0.5 ML VIAL.NEB. NEB ONE (17:56)
[2021-11-06] MEDS ORDERED: ALBUTEROL SO4 0.083% IH SOL 2.5 MG/3 ML VIAL.NEB. NEB ONE (18:04)
[2021-11-06 18:39] VITALS: PULSE 78
[2021-11-06 18:41] VITALS: BP 112/72
== END 2021-11-06 18:47 | disposition home or self-care (01) ==
LOC: JER 15:25
PROC: 3E023GC Introduction of Other Therapeutic Substance into Muscle, Percutaneous Approach (ICD-10-PCS; principal; 2021-11-06)
PROC: 3E0F7GC Introduction of Other Therapeutic Substance into Respiratory Tract, Via Natural or Artificial Opening (ICD-10-PCS; 2021-11-06)
DX: J45.909 Unspecified asthma, uncomplicated (principal)
CPT/HCPCS: 0241U-QW; 99285-25; J1100

== ENCOUNTER 2022-09-25 15:04 | Emergency (ER) | payer OTHER ==
[2022-09-25 15:18] VITALS: BP 133/95; PULSE 94; RESP 19; TEMP 98.1; BMI 30.1
== END 2022-09-25 17:00 | disposition home or self-care (01) ==
LOC: JER 15:04
DX: J45.909 Unspecified asthma, uncomplicated (principal)
CPT/HCPCS: 99282-25

== ENCOUNTER 2023-01-01 15:10 | Emergency (ER) | payer OTHER ==
[2023-01-01 15:17] VITALS: BP 141/88; PULSE 91; RESP 24; TEMP 98.4; BMI 28.1
[2023-01-01] MEDS ORDERED: ALBUTEROL SO4 2.5/IPRATROPIUM 0.5 INH SOL 3 ML VIAL.NEB. NEB ONE ×2 (15:19→15:59)
[2023-01-01] MEDS: ALBUTEROL SO4 2.5/IPRATROPIUM 0.5 INH SOL 3 ML VIAL.NEB. NEB SCH ×2 (15:26→15:27)
[2023-01-01] MEDS ORDERED: DEXAMETHASONE SOD PHOSPHATE 10 MG/1 ML VIAL IM ONE (15:41)
[2023-01-01] MEDS ORDERED: DEXAMETHASONE SOD PHOSPHATE 10 MG/1 ML VIAL ONE (15:49)
== END 2023-01-01 16:51 | disposition home or self-care (01) ==
LOC: JERFT 15:10
PROC: 3E023GC Introduction of Other Therapeutic Substance into Muscle, Percutaneous Approach (ICD-10-PCS; principal; 2023-01-01)
PROC: 3E0F7GC Introduction of Other Therapeutic Substance into Respiratory Tract, Via Natural or Artificial Opening (ICD-10-PCS; 2023-01-01)
DX: J45.21 Mild intermittent asthma with (acute) exacerbation (principal); R05.9 Cough, unspecified
CPT/HCPCS: 99284-25; J1100